=== PATIENT | female | born 1945 | race Caucasian/White ===

== ENCOUNTER 2016-09-27 06:43 | Outpatient (CLI) | payer MEDICARE | END 2016-09-27 06:44 | disposition home or self-care (01) | DX: E03.9 Hypothyroidism, unspecified (principal); Z79.899 Other long term (current) drug therapy ==

== ENCOUNTER 2016-10-18 12:58 | Outpatient (CLI) | payer MEDICARE | END 2016-10-18 12:59 | disposition home or self-care (01) | DX: R07.89 Other chest pain (principal); R68.84 Jaw pain; M54.2 Cervicalgia ==

== ENCOUNTER 2016-10-24 08:00 | Outpatient (CLI) | payer MEDICARE | END 2016-10-24 23:59 | disposition home or self-care (01) | DX: N30.01 Acute cystitis with hematuria (principal) ==

== ENCOUNTER 2016-10-28 11:18 | Outpatient (CLI) | payer MEDICARE | END 2016-10-28 11:19 | disposition home or self-care (01) | DX: R07.89 Other chest pain (principal); I10 Essential (primary) hypertension; I08.2 Rheumatic disorders of both aortic and tricuspid valves ==

== ENCOUNTER 2017-01-13 08:05 | Outpatient (CLI) | payer MEDICARE ==
[2017-01-13 15:14] LABS: BASOPHILS % (AUTO) 0.6 %; EOSINOPHILS # (AUTO) 0.1 10^3/uL (0.0-0.7); HCT - HEMATOCRIT 38.4 % (37.0-47.0); HGB - HEMOGLOBIN 12.8 g/dL (12.0-16.0); LYMPHOCYTES # (AUTO) 1.7 10^3/uL (1.5-3.5); LYMPHOCYTES % (AUTO) 36.5 %; MEAN CORPUSCULAR HEMOGLOBIN 27.8 pg (27.0-31.0); MEAN CORPUSCULAR HGB CONC 33.2 g/dL (32.0-36.0); MEAN CORPUSCULAR VOLUME 83.8 fL (81.0-99.0); MEAN PLATELET VOLUME 8.1 fL (7.9-10.8); MONOCYTES # (AUTO) 0.4 10^3/uL (0.0-1.0); MONOCYTES % (AUTO) 7.9 %; NEUTROPHILS # (AUTO) 2.5 10^3/uL (1.5-6.6); RED BLOOD COUNT 4.58 10^6/uL (4.20-5.40); RED CELL DISTRIBUTION WIDTH 13.8 % (12.0-15.0); UNCORRECTED WHITE BLOOD COUNT 4.7 x10^3/uL; WHITE BLOOD COUNT 4.7 x10^3/uL (4.8-10.8)
[2017-01-13 15:39] LABS: ALBUMIN/GLOBULIN RATIO 1.3 (1.0-2.2); BILIRUBIN,TOTAL 0.8 mg/dL (0.2-1.0); BUN - BLOOD UREA NITROGEN 10 mg/dL (6-20); CALCIUM 9.3 mg/dL (8.5-10.3); CARBON DIOXIDE - CO2 28 mmol/L (21-32); CHLORIDE 96 mmol/L (101-111); CHOL/HDL RATIO 2.6 (<4.4); CHOLESTEROL 219 mg/dL; CREATININE 0.8 mg/dL (0.4-1.0); GFR - MDRD 71 (>89); GLUCOSE 84 mg/dL (70-100); HDL CHOLESTEROL 85 mg/dL; LDL/HDL RATIO 1.2 (<4.4); POTASSIUM 3.7 mmol/L (3.5-5.0); SODIUM 133 mmol/L (135-145); TOTAL PROTEIN 7.5 g/dL (6.7-8.2); TRIGLYCERIDES 151 mg/dL; VLDL CHOLESTEROL 30 mg/dL
[2017-01-13 15:49] LABS: FERRITIN 38.1 ng/mL (11.0-306.8)
[2017-01-13 16:02] LABS: THYROID STIMULATING HORMONE 2.78 uIU/mL (0.34-5.60)
== END 2017-01-13 08:06 | disposition home or self-care (01) ==
LOC: LAB.R 08:05
PROVIDERS: ATTEND Physician Assistant Medical
DX: E03.9 Hypothyroidism, unspecified (principal); M81.0 Age-related osteoporosis without current pathological fracture; G25.81 Restless legs syndrome; I10 Essential (primary) hypertension; Z79.899 Other long term (current) drug therapy
CPT/HCPCS: 80053; 80061; 82306; 82728; 84443; 85025

== ENCOUNTER 2017-01-25 10:11 | Outpatient (CLI) | payer MEDICARE ==
--- NOTE | 2017-01-26 17:04 | Mammography Report ---
DIGITAL SCREENING MAMMOGRAM: 01/25/2017 CLINICAL INDICATION: A 71-year-old with family history of breast cancer, history of benign left shola st biopsy for screening. COMPARISON: 12/2015, 11/2014, 09/2013, 12/2011, 10/2010, 09/2009. TECHNIQUE: Routine CC and MLO projections were obtained of the breasts. FINDINGS: Parenchymal tissue within the breasts is predominantly fatty replaced. There are no domin ant masses, suspicious microcalcifications, or secondary signs of malignancy. In comparison to the p revious studies, there are no significant changes. IMPRESSION: NO MAMMOGRAPHIC EVIDENCE OF MALIGNANCY. NO SIGNIFICANT INTERVAL CHANGES. RECOMMENDATION: Screening mammography is recommended annually. BIRADS category 1 - negative. STANDARD QUALIFYING STATEMENTS 1. This examination was reviewed with the aid of Computed-Aided Detection (CAD). 2. A negative or benign imaging report should not delay biopsy if clinically suspicious findings are present. Consider surgical consultation if warranted. More than 5% of cancers are not identified b y imaging. 3. Dense breasts may obscure an underlying neoplasm. JOB #: [id number] EXT JOB #:[id number]
== END 2017-01-25 10:12 | disposition home or self-care (01) ==
LOC: DI 10:11
PROVIDERS: ATTEND Physician Assistant Medical
DX: Z12.31 Encounter for screening mammogram for malignant neoplasm of breast (principal); Z80.3 Family history of malignant neoplasm of breast
CPT/HCPCS: 77067

== ENCOUNTER 2017-03-21 08:00 | Outpatient (CLI) | payer MEDICARE ==
[2017-03-21 09:54] LABS: BASOPHILS % (AUTO) 0.4 %; EOSINOPHILS # (AUTO) 0.1 10^3/uL (0.0-0.7); EOSINOPHILS % (AUTO) 1.2 %; HCT - HEMATOCRIT 37.8 % (37.0-47.0); HGB - HEMOGLOBIN 12.8 g/dL (12.0-16.0); LYMPHOCYTES # (AUTO) 1.5 10^3/uL (1.5-3.5); LYMPHOCYTES % (AUTO) 29.1 %; MEAN CORPUSCULAR HEMOGLOBIN 28.9 pg (27.0-31.0); MEAN CORPUSCULAR HGB CONC 33.8 g/dL (32.0-36.0); MEAN CORPUSCULAR VOLUME 85.4 fL (81.0-99.0); MEAN PLATELET VOLUME 7.3 fL (7.9-10.8); MONOCYTES # (AUTO) 0.4 10^3/uL (0.0-1.0); MONOCYTES % (AUTO) 8.4 %; NEUTROPHILS # (AUTO) 3.2 10^3/uL (1.5-6.6); NEUTROPHILS % (AUTO) 60.9 %; RED BLOOD COUNT 4.43 10^6/uL (4.20-5.40); RED CELL DISTRIBUTION WIDTH 14.7 % (12.0-15.0); UNCORRECTED WHITE BLOOD COUNT 5.2 x10^3/uL; WHITE BLOOD COUNT 5.2 x10^3/uL (4.8-10.8)
[2017-03-21 10:09] LABS: ALBUMIN/GLOBULIN RATIO 1.7 (1.0-2.2); BILIRUBIN,TOTAL 0.8 mg/dL (0.2-1.0); CALCIUM 9.3 mg/dL (8.5-10.3); CREATININE 0.7 mg/dL (0.4-1.0); MAGNESIUM 2.2 mg/dL (1.7-2.8); POTASSIUM 3.7 mmol/L (3.5-5.0); TOTAL PROTEIN 6.9 g/dL (6.7-8.2)
== END 2017-03-21 08:01 | disposition home or self-care (01) ==
LOC: LAB.R 08:00
PROVIDERS: ATTEND Physician Assistant Medical
DX: E03.9 Hypothyroidism, unspecified (principal); R42 Dizziness and giddiness; G47.62 Sleep related leg cramps; G25.81 Restless legs syndrome; E87.1 Hypo-osmolality and hyponatremia; N39.0 Urinary tract infection, site not specified
CPT/HCPCS: 80053; 83735; 84443; 85025; 87077; 87086

== ENCOUNTER 2017-05-06 12:00 | Outpatient (CLI) | payer MEDICARE ==
[2017-05-06 13:05] LABS: CREATININE 0.7 mg/dL (0.4-1.0)
[2017-05-06] MEDS ORDERED: GADOBUTROL 7.5 MMOL/7.5 ML VIAL ONE (13:17)
[2017-05-06] MEDS ORDERED: GADOBUTROL 7.5 MMOL/7.5 ML VIAL IVP ONE (13:52)
--- NOTE | 2017-05-07 06:18 | MRI Report ---
EXAM: MRI BRAIN WITHOUT AND WITH CONTRAST EXAM DATE: 05/06/2017 02:00 PM. CLINICAL HISTORY: Dizziness, hypertension. COMPARISON: Brain CT from 12/27/2006. TECHNIQUE: Multiplanar, multisequence T1-weighted and fluid-sensitive MR sequences of the brain were performed. Sequences optimized for routine evaluation. Other: None. IV Contrast: 7.5 mL of Gadavist. FINDINGS: Brain Volume: There is mild generalized cerebral volume loss, in keeping with the patient's age. Parenchyma: No diffusion restriction is identified to suggest acute or recent infarct. The susceptibility sensitive sequence demonstrates a single chronic microhemorrhage in the anterior l eft frontal lobe, often related to chronic hypertension. Mild scattered foci of T2 hyperintensity are seen in the subcortical, deep, and periventricular white matter of the bilateral cerebral hemispheres, typically reflecting chronic microvascular ischemic ch anges in a patient of this age. Ventricles/Cisterns: No hydrocephalus. No abnormal extra-axial fluid collection or hemorrhage. Orbits: Symmetric and unremarkable. Sella Turcica: The pituitary gland, cavernous sinuses, suprasellar cistern and optic chiasm are unrem arkable. IAC: Symmetric and unremarkable. Vasculature: Normal signal flow void is seen in the major arterial structures at the skull base. The dural sinuses are patent and enhance normally. Sinuses: No acute sinus disease. Bones: No focal pathologic appearing marrow signal changes. IMPRESSION: 1.No acute infarct or intracranial mass lesion. 2. Mild senescent changes. [facility] Referring Provider Line: [phone] SITE ID: [id number]
== END 2017-05-06 12:01 | disposition home or self-care (01) ==
LOC: LAB 12:00
PROVIDERS: ATTEND Physician Assistant Medical
DX: R42 Dizziness and giddiness (principal); I10 Essential (primary) hypertension; Z79.899 Other long term (current) drug therapy
CPT/HCPCS: 70553; 82565; A9585; 36415

== ENCOUNTER 2017-09-13 08:00 | Outpatient (CLI) | payer MEDICARE ==
[2017-09-13 17:40] LABS: T4 (THYROXINE) 7.5 ug/dL (6.09-12.23)
[2017-09-13 17:43] LABS: THYROID STIMULATING HORMONE 0.7 uIU/mL (0.34-5.60)
[2017-09-13 17:50] LABS: TOTAL T3 1.16 ng/mL (0.87-1.78)
== END 2017-09-13 08:01 | disposition home or self-care (01) ==
LOC: LAB.R 08:00
PROVIDERS: ATTEND Physician Assistant Medical
DX: E03.9 Hypothyroidism, unspecified (principal); Z79.899 Other long term (current) drug therapy
CPT/HCPCS: 84436; 84443; 84480

== ENCOUNTER 2017-10-04 15:07 | Observation (INO) | payer MEDICARE ==
[2017-10-04 17:12] LABS: BASOPHILS % (AUTO) 0.3 %; EOSINOPHILS % (AUTO) 0.3 %; HGB - HEMOGLOBIN 12.6 g/dL (12.0-16.0); LYMPHOCYTES # (AUTO) 0.8 10^3/uL (1.5-3.5); LYMPHOCYTES % (AUTO) 21.3 %; MEAN CORPUSCULAR HEMOGLOBIN 27.8 pg (27.0-31.0); MEAN CORPUSCULAR HGB CONC 33.3 g/dL (32.0-36.0); MEAN CORPUSCULAR VOLUME 83.7 fL (81.0-99.0); MEAN PLATELET VOLUME 7.6 fL (7.9-10.8); MONOCYTES # (AUTO) 0.4 10^3/uL (0.0-1.0); MONOCYTES % (AUTO) 10.5 %; NEUTROPHILS # (AUTO) 2.5 10^3/uL (1.5-6.6); NEUTROPHILS % (AUTO) 67.6 %; PLT - PLATELET COUNT 206 10^3/uL (130-450); RED BLOOD COUNT 4.52 10^6/uL (4.20-5.40); RED CELL DISTRIBUTION WIDTH 14.1 % (12.0-15.0); WHITE BLOOD COUNT 3.7 x10^3/uL (4.8-10.8)
[2017-10-04 17:13] LABS: CALCIUM 8.7 mg/dL (8.5-10.3); CREATININE 0.6 mg/dL (0.4-1.0)
[2017-10-04] MEDS ORDERED: SODIUM CHLORIDE 0.9% 1,000 ML IV ONE (18:06)
--- NOTE | 2017-10-04 18:09 | ED Physician Documentation ---
History of Present Illness - Stated complaint Stated Complaint: SINUS PX/COUGH - Chief complaint Chief Complaint: General - Additonal information Additional information: hx from pt 72 female no travel sick with fever cough and several days later she got sick with same fever chills sinus pressure sore throat wet productive cough no NVD no leg swelling seen at PMD and was orthostatic (BP dropped from 130 to 90) so sent to ER for eval and IVF Review of Systems Constitutional: reports: Fever, Myalgias, Fatigue, Sweats Nose: reports: Congestion, Sinus pressure / pain Throat: reports: Sore throat Respiratory: reports: Cough GI: denies: Vomiting, Diarrhea Musculoskeletal: denies: Extremity swelling Endocrine: denies: Easy bruising / bleeding Immunocompromised: denies: Immunocompromised PD PAST MEDICAL HISTORY - Past Medical History Cardiovascular: Hypertension, Murmur Neuro: None Endocrine/Autoimmune: HyPOthyroidism GI: GERD HEENT: None Musculoskeletal: Osteoarthritis, Osteoporosis - Past Surgical History Past Surgical History: Yes Ortho: Hip replacement, 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 Derm: Skin cancer surgery - Present Medications Home Medications: Ambulatory Orders Medication Instructions Recorded Confirmed Atenolol 25 mg PO 02/05/14 02/05/14 Calcitonin [Fortical] 1 sprays KARI DAILY 02/05/14 02/05/14 Hydrocodone/Acetaminophen 1 each PO Q4HR PRN #15 tablet 02/05/14 [Hydrocodone-APAP 5-325] Levothyroxine [Synthroid] 25 mcg PO QDAC 02/05/14 02/05/14 Omeprazole [PriLOSEC] 20 mg PO DAILY 02/05/14 02/05/14 - Allergies Allergies/Adverse Reactions: Allergies Allergy/AdvReac Type Severity Reaction Status Date / Time Sulfa (Sulfonamide Allergy Itching Verified 10/04/17 15:30 Antibiotics) - Social History Does the pt smoke?: No Smoking Status: Never smoker Does the pt drink ETOH?: No Does the pt have substance abuse?: No - Immunizations Immunizations are current?: Yes - POLST Patient has POLST: No PD ED PE NORMAL - Vitals Vital signs reviewed: Yes - General General: Alert and oriented X 3 - HEENT HEENT: Atraumatic, Ears normal, Pharynx benign, Other ( + diffuse sinus TTP sswelling). No: Moist mucous membranes (little sticky) - Neck Neck: Supple, no meningeal sign - Cardiac Cardiac: RRR - Respiratory Respiratory: Other (ronchi vladimir) - Abdomen Abdomen: Soft, Non tender - Derm Derm: Normal color - Extremities Extremities: No edema, No calf tenderness / cord - Neuro Neuro: Alert and oriented X 3 Results - Vitals Vitals: Vital Signs - 24 hr 10/04/17 10/04/17 15:27 19:08 Temperature 36.5 C 37.2 C Heart Rate 56 L 63 Respiratory 16 20 Rate Blood Pressure 103/63 126/68 O2 Saturation 98 97 Oxygen O2 Source Room air - Labs Labs: Laboratory Tests 10/04/17 10/04/17 10/04/17 16:49 16:49 16:49 WBC 3.7 L RBC 4.52 Hgb 12.6 Hct 37.8 MCV 83.7 MCH 27.8 MCHC 33.3 RDW 14.1 Plt Count 206 MPV 7.6 L Neut # 2.5 Lymph # 0.8 L [place] # 0.4 Eos # 0.0 Baso # 0.0 Absolute Nucleated RBC 0.00 Nucleated RBC % 0.1 Sodium 123 L Potassium 3.7 Chloride 88 L Carbon Dioxide 26 Anion Gap 9.0 BUN 8 Creatinine 0.6 Estimated GFR (MDRD) 99 Glucose 106 H Lactic Acid 0.7 Calcium 8.7 - Rads (name of study) CXR Radiology: See rad report (faint right perihilar and lingular interstitial infiltrates) PD MEDICAL DECISION MAKING - ED course ED course: strep neg at PMD pt declined flu swab in ED given IVF and symptomatic meds labs fine except hyponatremia CXR shows vladimir infiltrates gave rocephin zmax on reassessment pt still looks ill will recheck orthostatics orthostatics better but Na very low at 123 and pt still very weak feel best to admit for continued IV hydration and antibiotics and correction of hyponatremia simone hospitalist at 1915 Departure - Departure Disposition: ED Place in Observation Clinical Impression: Hyponatremia Pneumonia Qualifiers: Pneumonia type: due to unspecified organism Laterality: bilateral Lung location : unspecified part of lung Qualified Code(s): J18.9 - Pneumonia, unspecified organism Condition: Fair
[2017-10-04] MEDS ORDERED: OXYMETAZOLINE NASAL SPRAY NAS STA (18:11)
[2017-10-04] MEDS ORDERED: PSEUDOEPHEDRINE 30 MG TABLET PO STA (18:11)
[2017-10-04] MEDS ORDERED: guaiFENesin/DEXTROMETHORPHAN 10 ML UDC PO STA (18:14)
[2017-10-04] MEDS ORDERED: BENZONATATE 100 MG CAPSULE PO STA (18:14)
--- NOTE | 2017-10-04 18:24 | XRAY Preliminary Report ---
Exam: XR CHEST 2 VIEW X-RAY IMPRESSION: Faint right perihilar and lingular interstitial infiltrates [facility] SITE ID: [id number]
--- NOTE | 2017-10-04 18:32 | XRAY Report ---
EXAM: CHEST RADIOGRAPHY EXAM DATE: 10/04/2017 05:54 PM. CLINICAL HISTORY: Fever, cough, hypotension for 5 days. COMPARISON: 04/08/2011. TECHNIQUE: 2 views. FINDINGS: Lungs/Pleura: New faint interstitial infiltrates within the lingula and right perihilar region. No ai rspace consolidation, effusion, vascular congestion nor pneumothorax. Normal lung volumes. Mediastinum: Heart and mediastinal contours are unremarkable. Other: None. IMPRESSION: Faint right perihilar and lingular interstitial infiltrates. [facility] Referring Provider Line: [phone] SITE ID: [id number]
[2017-10-04] MEDS ORDERED: cefTRIAXone 1 GM in SODIUM CHLORIDE 0.9% MINIBAG 100 ML IV STA (18:45)
[2017-10-04] MEDS ORDERED: AZITHROMYCIN INJ 500 MG in SODIUM CHLORIDE 0.9% 250 ML IV STA (18:45)
[2017-10-04] MEDS ORDERED: oxyCODONE 5 MG TABLET PO PRN (19:19)
[2017-10-04] MEDS ORDERED: ONDANSETRON ODT 4 MG TABLET TL PRN (19:19)
[2017-10-04] MEDS ORDERED: ACETAMINOPHEN 325 MG TABLET PO PRN (19:19)
[2017-10-04] MEDS ORDERED: SODIUM CHLORIDE FLUSH 0.9% 10 ML SYRINGE IVP PRN (19:19)
[2017-10-04] MEDS ORDERED: ONDANSETRON 4 MG/2 ML VIAL IVP PRN (19:19)
[2017-10-04] MEDS ORDERED: PANTOPRAZOLE 40 MG TABLET PO SCH (19:24)
[2017-10-04] MEDS: SODIUM CHLORIDE 0.9% 1,000 ML IV SCH (21:05)
--- NOTE | 2017-10-04 22:28 | HISTORY & PHYSICAL EXAMINATION ---
Chief Complaint - Chief Complaint Chief Complaint: unremitting cough spasms and fatigue, anorexia History of Present Illness - Admitted From Admitted From:: ED/home - History Obtained From Records Reviewed: [facility] History obtained from: Patient and Dr. Yang Exam Limitations: none - History of Present Illness HPI Comment/Other: Pleasant white female who has no major medical illnesses other than high blood pressure alternating with low blood pressure. In the last couple of years she's developed problems with her blood pressure going up and then going down. She will get dizzy when she standing up. Her primary care provider has been working that up and other than aortic regurgitation nothing has been found. A week ago she and her both came down with a severe viral infection. It had sore throat, sinus congestion, chest congestion, coughing, and just overall misery. She's been staying up at night taking care of her because he seemed to be sicker than she was. He was finally on the mend and she took herself to see her primary care provider today because the coughing was nonstop and she couldn't sleep at night because she couldn't lay down flat. She's had a poor appetite. No chest pain. But if she takes a deep breath it just starts of coughing spasms that won't stop, make her short of breath, and increased urinary incontinence. She went to the office and was found to be orthostatic with a blood pressure that went from 1:30 systolic to 90 systolic. She doesn't understand what that meant because she does this all the time, and thus the reason she is being evaluated for a blood pressure that goes up and down. Nevertheless, in the context of the cough, she was sent to the emergency room. In the emergency room she is afebrile, oxygenating well on room air, but has bilateral pneumonia. 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 Dad age 78 accommodations of emphysema. One brother of heart disease in his 60s. One sister is alive and has had breast cancer. Her daughter is healthy Living arrangement: At home Living Situation: With spouse/s.o. Social History Notes: she smoked from the ages of [age]. And smoked one half packs per day. She never abused alcohol, and has never done recreational substance abuse. She was born and raised in [place]: she was born in [facility] and spent most of her years in [place]. From there she moved to [place] , then [place], [place]. 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 She is still completely independent with regards to activities of daily living, paying the bills, cleaning house, driving. Daughter lives in [facility] near [place]. - Substance History Use: Uses substance without health or social issues: NONE Abuse: Recurrent use of substance despite neg consequences: NONE Dependence: Experiences withdrawal or developed tolerances: NONE - POLST Patient has POLST: No POLST Status: Full Code Meds/Allgy - Home Medications Home Medications: Ambulatory Orders Medication Instructions Recorded Confirmed Atenolol 25 mg PO 02/05/14 02/05/14 Calcitonin [Fortical] 1 sprays KARI DAILY 02/05/14 02/05/14 Hydrocodone/Acetaminophen 1 each PO Q4HR PRN #15 tablet 02/05/14 [Hydrocodone-APAP 5-325] Levothyroxine [Synthroid] 25 mcg PO QDAC 02/05/14 02/05/14 Omeprazole [PriLOSEC] 20 mg PO DAILY 02/05/14 02/05/14 - Allergies Allergies/Adverse Reactions: Allergies Allergy/AdvReac Type Severity Reaction Status Date / Time Sulfa (Sulfonamide Allergy Itching Verified 10/04/17 15:30 Antibiotics) Review of Systems - Constitutional Constitutional: reports: Fatigue, Fever, Chills, Malaise, Poor appetite - Eyes Eyes: reports: Corrective lenses. denies: Pain, Irritation, Amaurosis, Blurred vision - Ears, Nose & Throat Ears, Nose & Throat: reports: Vertigo, Nasal discharge, Nasal congestion. denies: Ear pain - Cardiovascular Cariovascular: reports: Palpitations (starting to happen. ECHO has LAE so she may have intermittent afib), Lightheadedness (BP goes up and down for over a year now), Exertional dyspnea (starting to happen as she walks up her stairs in her 3 story house, this is a separate problem from her current pneumonia), Decr. exercise tolerance - Respiratory Respiratory: reports: Cough, Sputum production, Orthopnea - Gastrointestinal Gastrointestinal: denies: Abdominal pain, Abdominal distention, Constipation, Diarrhea, Rectal bleeding - Genitourinary Genitourinary: reports: Incontinence. denies: Dysuria, Frequency, Urgency - Musculoskeletal Musculoskeletal: reports: Muscle aches, Joint pain (knees need replacment and she takes cortisone shots for pain control). denies: Muscle pain, Back pain, Stiffness - Integumentary Integumentary: denies: Rash, Pruritis, Lesions, Dryness - Neurological Neurological: reports: General weakness, Dizziness. denies: Focal weakness, Headache, Numbness, Memory problems, Pre-existing deficit, Abnormal gait - Psychiatric Psychiatric: denies: Depression, Anxiety, Suicidal, Delusions - Endocrine Endocrine: denies: Polyuria, Polydypsia, Polyphagia - Hematologic/Lymphatic Hematologic/Lymphatic: denies: Anemia, Bruising, Petechiae Exam - Vital Signs Reviewed Vital Signs: Yes Vital Signs: Vital Signs x48h Pulse Resp BP Pulse Ox 10/04/17 20:25 68 16 120/70 98 - Physical Exam General Appearance: positive: No acute distress, Alert, Other (middle aged white female with nasal tone of voice. Frequent dry cough.) Eyes Bilateral: positive: PERRL, EOMI ENT: positive: Pharyngeal erythema Neck: positive: No JVD. negative: Stiff neck, Carotid bruit, Swelling/bruising Respiratory: positive: Chest non-tender, Rhonchi (mid lungs with left > right), Other (no tachypnea but cough leaves her breathless) Cardiovascular: positive: Regular rate & rhythm, Systolic murmur, Diastolic murmur. negative: Gallop/S4, Friction rub Peripheral Pulses: positive: 1+ Abdomen: positive: Non-tender, No organomegaly, Nml bowel sounds, No distention Skin: positive: Warm, Dry Extremities: positive: Nml appearance, No pedal edema Neurologic/Psychiatric: positive: Oriented x3, CN's nml (2-12), Motor nml Conclusion/Plan - Problem List (1) Community acquired bacterial pneumonia Conclusion/Plan: she presents as viral syndrome for over a week, and now with cough, congestion, anorexia, fatigue. She was orthostatic but is usually orthostatic according to her history. CXR positive. WBC is low. Not hypoxic and negative lactic acid. Dose of azithromycin and rocephin given. Blood cultures ordered and done Robitussin AC for cough No O2 needed IVF with 0.9 NS Patient takes probiotics at home already Plan: place in observation to make sure she responds. DC in am if still stable. compete a total of 7 days of antibiotics and change to oral after tomorrow with amoxicillin 875 mg po bid #10, azithromycin 250 mg po #2. She already has Myron Ac at home from her so doesn't need a new Rx for it at discharge. (2) Hyponatremia Conclusion/Plan: I suspect dehydration. Plan: IVF with 0.9 NS until tomorrow. repeat BMP in am. (3) Orthostatic dizziness Conclusion/Plan: hold off on her BP meds until am. - Lab Results Lab results reviewed: Yes Fish Bones: 10/04/17 16:49 10/04/17 16:49 - Diagnostic Imaging Results Diagnostic Imaging Results: positive: Final report reviewed Core Measures - Anticipated LOS I expect patient to be DC'd or transferred within 96 hours.: Yes - DVT/VTE - Prophylaxis VTE/DVT Device ordered at admit?: Yes
[2017-10-05] MEDS: guaiFENesin/CODEINE 5 ML UDC PO PRN ×2 (00:18→06:07)
[2017-10-05] MEDS ORDERED: SODIUM CHLORIDE FLUSH 0.9% 10 ML SYRINGE IVP SCH (01:00)
[2017-10-05 05:50] LABS: BASOPHILS % (AUTO) 0.5 %; EOSINOPHILS # (AUTO) 0.1 10^3/uL (0.0-0.7); HGB - HEMOGLOBIN 11.8 g/dL (12.0-16.0); LYMPHOCYTES % (AUTO) 31.3 %; MEAN CORPUSCULAR HEMOGLOBIN 27.8 pg (27.0-31.0); MEAN CORPUSCULAR HGB CONC 33.5 g/dL (32.0-36.0); MEAN CORPUSCULAR VOLUME 83.2 fL (81.0-99.0); MEAN PLATELET VOLUME 7.1 fL (7.9-10.8); MONOCYTES # (AUTO) 0.5 10^3/uL (0.0-1.0); MONOCYTES % (AUTO) 14.4 %; NEUTROPHILS # (AUTO) 1.7 10^3/uL (1.5-6.6); NEUTROPHILS % (AUTO) 51.8 %; PLT - PLATELET COUNT 185 10^3/uL (130-450); RED BLOOD COUNT 4.22 10^6/uL (4.20-5.40); RED CELL DISTRIBUTION WIDTH 13.6 % (12.0-15.0); WHITE BLOOD COUNT 3.3 x10^3/uL (4.8-10.8)
[2017-10-05 06:02] LABS: CALCIUM 8.2 mg/dL (8.5-10.3); CREATININE 0.4 mg/dL (0.4-1.0)
[2017-10-05] MEDS ORDERED: LEVOTHYROXINE 25 MCG TABLET PO SCH (07:00)
[2017-10-05 07:12] VITALS: BP 117/67
[2017-10-05] MEDS: SODIUM CHLORIDE 0.9% 1,000 ML IV SCH (07:26)
--- NOTE | 2017-10-05 07:44 | Discharge Plan ---
Discharge Plan Disposition: [facility] DC/Xfer Condition: Fair Prescriptions: Amoxicillin/Potassium Clav [Amox Tr-K Clv 875-125 mg Tab] 1 each PO BID #10 tablet Azithromycin 250 mg PO DAILY #5 tablet Diet: Regular Activity Restrictions: Activity as Tolerated Shower Restrictions: No Driving Restrictions: No Weight Bearing: Full Weight Additional Instructions or Follow Up instructions: You presented to the ER with pneumonia. Given that you were dehydrated and your sodium was low we felt it was best for you to receive antibiotics and fluids overnight before being discharged home. You seem to be doing slightly better now and your sodium level has come up. We recommend that you continue antibiotics for an additional 5 days to complete the course of treatment. You can take a cough suppressant as needed for your cough. You should begin to feel better in 3-4 days. Please make sure to drink plenty of fluids and stay active. No Smoking: If you smoke, Please STOP! Call for help. Follow-up with: Telma Allen PA-C [Primary Care Provider] -
[2017-10-05] MEDS ORDERED: AZITHROMYCIN INJ 500 MG in SODIUM CHLORIDE 0.9% 250 ML IV SCH (09:00)
[2017-10-05] MEDS ORDERED: ATENOLOL 25 MG TABLET PO SCH (09:00)
[2017-10-05] MEDS ORDERED: POLYETHYLENE GLYCOL 3350 17 GM PACKET PO SCH (09:00)
[2017-10-05] MEDS ORDERED: cefTRIAXone 2 GM in SODIUM CHLORIDE 0.9% MINIBAG 100 ML IV SCH (09:00)
--- NOTE | 2017-10-05 11:16 | DISCHARGE SUMMARY ---
Discharge Summary Admit Date: 10/04/17 Discharge Date: 10/05/17 Discharging Provider: Hima Gonzalez MD Primary Care Provider: To Diop MD Code Status: Attempt Resuscitation Condition at Discharge: Fair Discharge Disposition: 01 Home, Self Care - DIAGNOSES Admission Diagnoses: 1. Community-acquired bacterial pneumonia 2. Hyponatremia 3. Orthostatic dizziness Discharge Diagnoses with Status of Each Condition: 1. Community-acquired bacterial pneumonia: Improving 2. Hyponatremia: Improved 3. Orthostatic dizziness: Improved - HPI History of Present Illness: Pleasant white female who has no major medical illnesses other than high blood pressure alternating with low blood pressure. In the last couple of years she's developed problems with her blood pressure going up and then going down. She will get dizzy when she standing up. Her primary care provider has been working that up and other than aortic regurgitation nothing has been found. A week ago she and her both came down with a severe viral infection. It had sore throat, sinus congestion, chest congestion, coughing, and just overall misery. She's been staying up at night taking care of her because he seemed to be sicker than she was. He was finally on the mend and she took herself to see her primary care provider today because the coughing was nonstop and she couldn't sleep at night because she couldn't lay down flat. She's had a poor appetite. No chest pain. But if she takes a deep breath it just starts of coughing spasms that won't stop, make her short of breath, and increased urinary incontinence. She went to the office and was found to be orthostatic with a blood pressure that went from 1:30 systolic to 90 systolic. She doesn't understand what that meant because she does this all the time, and thus the reason she is being evaluated for a blood pressure that goes up and down. Nevertheless, in the context of the cough, she was sent to the emergency room. In the emergency room she is afebrile, oxygenating well on room air, but has bilateral pneumonia. - HOSPITAL COURSE Hospital Course: The patient was placed in observation and treated with IV fluids and IV antibiotics. She was placed on IV ceftriaxone and azithromycin. She received 2 doses of antibiotics while she was hospitalized. By the next morning the patient was feeling slightly better and her hyponatremia had improved. The patient also had no further orthostatic dizziness. She was not hypoxic and appeared well enough to be able to go home on oral antibiotics. The patient was discharged home with oral Augmentin and oral azithromycin for 5 additional days to complete treatment for community-acquired pneumonia. She will follow- up with her primary care physician if she is not feeling better after treatment for pneumonia. The patient was also instructed to take Robitussin for her cough as needed she stated that she already had Robitussin at home. - ALLERGIES Allergies/Adverse Reactions: Allergies Allergy/AdvReac Type Severity Reaction Status Date / Time Sulfa (Sulfonamide Allergy Itching Verified 10/04/17 15:30 Antibiotics) - MEDICATIONS Home Medications: Ambulatory Orders Medication Instructions Recorded Confirmed Atenolol 25 mg PO 02/05/14 02/05/14 Calcitonin [Fortical] 1 sprays KARI DAILY 02/05/14 02/05/14 Hydrocodone/Acetaminophen 1 each PO Q4HR PRN #15 tablet 02/05/14 [Hydrocodone-APAP 5-325] Levothyroxine [Synthroid] 25 mcg PO QDAC 02/05/14 02/05/14 Omeprazole [PriLOSEC] 20 mg PO DAILY 02/05/14 02/05/14 Amoxicillin/Potassium Clav [Amox 1 each PO BID #10 tablet 10/05/17 Tr-K Clv 875-125 mg Tab] Azithromycin 250 mg PO DAILY #5 tablet 10/05/17 - PHYSICAL EXAM AT DISCHARGE General Appearance: positive: No acute distress, Alert Eyes Bilateral: positive: Normal inspection, PERRL, EOMI, No lid inflammation, Conjunctivae nml, No scleral icterus ENT: positive: ENT inspection nml, Pharynx nml, No signs of dehydration. negative: Purulent nasal drainage, Pharyngeal erythema, Oral lesions Neck: positive: Nml inspection, Thyroid nml, No JVD, Trachea midline. negative : Thyromegaly, Lymphadenopathy (R), Lymphadenopathy (L), Stiff neck Respiratory: positive: Chest non-tender, No respiratory distress, Rhonchi ( Right lung). negative: Wheezes, Rales Cardiovascular: positive: Regular rate & rhythm, No murmur, No gallop Peripheral Pulses: positive: 2+ Abdomen: positive: Non-tender, No organomegaly, Nml bowel sounds, No distention. negative: Guarding, Rebound Back: positive: Nml inspection. negative: CVA tenderness (R), CVA tenderness (L ) Skin: positive: Color nml, No rash, Warm Extremities: positive: Non-tender, Full ROM, Nml appearance, No pedal edema Neurologic/Psychiatric: positive: Oriented x3, CN's nml (2-12), Motor nml, Sensation nml, Mood/affect nml - LABS Result Diagrams: 10/05/17 05:30 10/05/17 05:30 Other Lab Results: Laboratory Results WBC 3.3 x10^3/uL (4.8-10.8) L 10/05/17 05:30 RBC 4.22 10^6/uL (4.20-5.40) 10/05/17 05:30 Hgb 11.8 g/dL (12.0-16.0) L 10/05/17 05:30 Hct 35.1 % (37.0-47.0) L 10/05/17 05:30 MCV 83.2 fL (81.0-99.0) 10/05/17 05:30 MCH 27.8 pg (27.0-31.0) 10/05/17 05:30 MCHC 33.5 g/dL (32.0-36.0) 10/05/17 05:30 RDW 13.6 % (12.0-15.0) 10/05/17 05:30 Plt Count 185 10^3/uL (130-450) 10/05/17 05:30 MPV 7.1 fL (7.9-10.8) L 10/05/17 05:30 Neut # 1.7 10^3/uL (1.5-6.6) 10/05/17 05:30 Lymph # 1.0 10^3/uL (1.5-3.5) L 10/05/17 05:30 [place] # 0.5 10^3/uL (0.0-1.0) 10/05/17 05:30 Eos # 0.1 10^3/uL (0.0-0.7) 10/05/17 05:30 Baso # 0.0 10^3/uL (0.0-0.1) 10/05/17 05:30 Absolute Nucleated RBC 0.00 x10^3/uL 10/05/17 05:30 Nucleated RBC % 0.1 /100WBC 10/05/17 05:30 Sodium 133 mmol/L (135-145) L 10/05/17 05:30 Potassium 3.7 mmol/L (3.5-5.0) 10/05/17 05:30 Chloride 102 mmol/L (101-111) 10/05/17 05:30 Carbon Dioxide 24 mmol/L (21-32) 10/05/17 05:30 Anion Gap 7.0 (6-13) 10/05/17 05:30 BUN 7 mg/dL (6-20) 10/05/17 05:30 Creatinine 0.4 mg/dL (0.4-1.0) 10/05/17 05:30 Estimated GFR (MDRD) 157 (>89) 10/05/17 05:30 Glucose 104 mg/dL (70-100) H 10/05/17 05:30 Lactic Acid 0.7 mmol/L (0.5-2.2) 10/04/17 16:49 Calcium 8.2 mg/dL (8.5-10.3) L 10/05/17 05:30 - DIAGNOSTIC IMAGING Diagnostic Imaging Results: Final report reviewed Diagnostic Imaging Results Comments: Chest x-ray Impression: 1. Faint right perihilar and lingular interstitial infiltrates. - FOLLOW UP Follow Up: Patient will follow up with her primary care physician as needed. She will complete a 5 day course of antibiotics for pneumonia. - TIME SPENT Time Spent in Discharge (Minutes): 35
== END 2017-10-05 11:09 | disposition home or self-care (01) ==
LOC: ED 15:07 → OBS 19:19
PROVIDERS: ADMIT Specialist; ATTEND Internal Medicine
DX: J18.9 Pneumonia, unspecified organism (principal); E87.1 Hypo-osmolality and hyponatremia; E86.0 Dehydration; I95.1 Orthostatic hypotension; I11.9 Hypertensive heart disease without heart failure; I35.1 Nonrheumatic aortic (valve) insufficiency; I49.9 Cardiac arrhythmia, unspecified; E89.0 Postprocedural hypothyroidism; K21.9 Gastro-esophageal reflux disease without esophagitis; K22.70 Barrett's esophagus without dysplasia; M81.0 Age-related osteoporosis without current pathological fracture; Z85.828 Personal history of other malignant neoplasm of skin; Z87.891 Personal history of nicotine dependence
CPT/HCPCS: 36415; 71046; 80048; 83605; 85025; 87040; 96361; 96365; 96366; 96367; 99284; A9270; G0378; 99283

== ENCOUNTER 2017-10-12 08:00 | Outpatient (CLI) | payer MEDICARE ==
[2017-10-12 12:41] LABS: CREATININE 0.6 mg/dL (0.4-1.0)
== END 2017-10-12 08:01 | disposition home or self-care (01) ==
LOC: LAB.R 08:00
PROVIDERS: ATTEND Physician Assistant Medical
DX: E87.1 Hypo-osmolality and hyponatremia (principal)
CPT/HCPCS: 80048

== ENCOUNTER 2017-10-26 10:31 | Outpatient (CLI) | payer MEDICARE ==
--- NOTE | 2017-10-26 12:17 | XRAY Report ---
TWO VIEW CHEST: 10/26/2017 COMPARISON: Two view chest 10/04/2017. INDICATION: Community acquired pneumonia. TECHNIQUE: Two views. FINDINGS: Clear lungs. No pneumothorax or pleural effusion. Mediastinum unremarkable. IMPRESSION: NO EVIDENCE OF ACUTE THORACIC PROCESS. TD: 10/26/2017 12:16 MTDD
== END 2017-10-26 10:32 | disposition home or self-care (01) ==
LOC: DI 10:31
PROVIDERS: ATTEND Physician Assistant Medical
DX: J18.9 Pneumonia, unspecified organism (principal)
CPT/HCPCS: 71046

== ENCOUNTER 2017-12-21 15:57 | Outpatient (CLI) | payer MEDICARE | END 2017-12-21 15:58 | disposition home or self-care (01) | LOC: LAB.R 15:57 | PROVIDERS: ATTEND Physician Assistant Medical | DX: N30.00 Acute cystitis without hematuria (principal) | CPT/HCPCS: 87077; 87086; 87181 ==

== ENCOUNTER 2018-02-21 11:10 | Outpatient (CLI) | payer MEDICARE | END 2018-02-21 11:11 | disposition home or self-care (01) | LOC: LAB.R 11:10 | PROVIDERS: ATTEND Nurse Practitioner Primary Care | DX: N30.00 Acute cystitis without hematuria (principal) | CPT/HCPCS: 87077; 87086; 87181 ==

== ENCOUNTER 2018-03-08 11:49 | Emergency (ER) | payer MEDICARE ==
[2018-03-08 12:17] LABS: BASOPHILS % (AUTO) 0.1 %; HGB - HEMOGLOBIN 11.8 g/dL (12.0-16.0); LYMPHOCYTES # (AUTO) 0.5 10^3/uL (1.5-3.5); LYMPHOCYTES % (AUTO) 4.7 %; MEAN CORPUSCULAR HEMOGLOBIN 28.4 pg (27.0-31.0); MEAN CORPUSCULAR HGB CONC 34.2 g/dL (32.0-36.0); MEAN PLATELET VOLUME 6.8 fL (7.9-10.8); MONOCYTES # (AUTO) 0.6 10^3/uL (0.0-1.0); MONOCYTES % (AUTO) 5.6 %; NEUTROPHILS # (AUTO) 9.6 10^3/uL (1.5-6.6); NEUTROPHILS % (AUTO) 89.6 %; PLT - PLATELET COUNT 228 10^3/uL (130-450); RED BLOOD COUNT 4.15 10^6/uL (4.20-5.40); RED CELL DISTRIBUTION WIDTH 13.6 % (12.0-15.0); WHITE BLOOD COUNT 10.8 x10^3/uL (4.8-10.8)
[2018-03-08 12:28] LABS: ALBUMIN/GLOBULIN RATIO 1.3 (1.0-2.2); BILIRUBIN,TOTAL 0.9 mg/dL (0.2-1.0); CALCIUM 8.6 mg/dL (8.5-10.3); CREATININE 0.6 mg/dL (0.4-1.0); TOTAL PROTEIN 7.1 g/dL (6.7-8.2)
--- NOTE | 2018-03-08 13:14 | ED Physician Documentation ---
PD HPI NVD - Stated complaint Stated Complaint: VOMITING/DIARRHEA - Chief complaint Chief Complaint: Abd Pain - History obtained from History obtained from: Patient, Family - History of Present Illness Timing - onset: Yesterday Timing - duration: Days (1) Timing - details: Abrupt onset, Still present Associated symptoms: Abdominal pain Contributing factors: Bad food Improved by: Vomiting Similar symptoms before: Diagnosis (food poisoning) Recently seen: Not recently seen - Additonal information Additional information: 72-year-old otherwise healthy female with a history of hypertension has developed acute diarrhea yesterday morning. She thought this might be related to going out to lunch with some friends the day previously. She denies any exposure to uncooked or partially cooked eggs. She does state that she developed nausea and vomiting last night on top of the diarrhea she had all day yesterday. She is feeling lightheaded and dizzy. Review of Systems Constitutional: reports: Fatigue. denies: Fever, Myalgias Eyes: denies: Decreased vision Ears: denies: Ear pain Nose: denies: Congestion Throat: denies: Sore throat Cardiac: denies: Chest pain / pressure, Palpitations Respiratory: denies: Dyspnea, Cough GI: reports: Abdominal Pain (cramping with diarrhea), Nausea, Vomiting, Diarrhea : denies: Dysuria, Frequency Skin: denies: Rash Musculoskeletal: denies: Neck pain, Back pain, Extremity pain Neurologic: denies: Generalized weakness, Focal weakness, Numbness PD PAST MEDICAL HISTORY - Past Medical History Cardiovascular: Hypertension, Murmur, Arrhythmia Respiratory: Other Endocrine/Autoimmune: HyPOthyroidism GI: GERD 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 03/08/18 - Allergies Allergies/Adverse Reactions: Allergies Allergy/AdvReac Type Severity Reaction Status Date / Time Sulfa (Sulfonamide Allergy Itching Verified 03/08/18 11:53 Antibiotics) - Social History Does the pt smoke?: No Smoking Status: Never smoker Does the pt drink ETOH?: No Does the pt have substance abuse?: No - Immunizations Immunizations are current?: Yes - POLST Patient has POLST: No POLST Status: Full Code PD ED PE NORMAL - Vitals Vital signs reviewed: Yes (normal ) - General General: Alert and oriented X 3, No acute distress, Well developed/nourished - HEENT HEENT: Atraumatic, PERRL, EOMI, Other (dry mucous membranes ) - Neck Neck: Supple, no meningeal sign, No bony TTP - Cardiac Cardiac: RRR, No murmur - Respiratory Respiratory: No respiratory distress, Clear bilaterally - Abdomen Abdomen: Soft, Non tender - Back Back: No CVA TTP, No spinal TTP - Derm Derm: Normal color, Warm and dry, No rash - Extremities Extremities: No deformity, No edema - Neuro Neuro: Alert and oriented X 3, coding specialist home health 2-12 intact, No motor deficit, No sensory deficit, Normal speech Eye Opening: Spontaneous Motor: Obeys Commands Verbal: Oriented GCS Score: 15 - Psych Psych: Normal mood, Normal affect Results - Vitals Vitals: Vital Signs - 24 hr 03/08/18 11:51 Temperature 37.4 C Heart Rate 78 Respiratory 18 Rate Blood Pressure 110/63 O2 Saturation 96 Oxygen O2 Source Room air - Labs Labs: Laboratory Tests 03/08/18 03/08/18 03/08/18 12:06 12:06 15:48 WBC 10.8 RBC 4.15 L Hgb 11.8 L Hct 34.5 L MCV 83.0 MCH 28.4 MCHC 34.2 RDW 13.6 Plt Count 228 MPV 6.8 L Neut # (Auto) 9.6 H Lymph # (Auto) 0.5 L Haskell # (Auto) 0.6 Eos # (Auto) 0.0 Baso # (Auto) 0.0 Absolute Nucleated RBC 0.00 Nucleated RBC % 0.0 Sodium 131 L Potassium 3.5 Chloride 98 L Carbon Dioxide 24 Anion Gap 9.0 BUN 10 Creatinine 0.6 Estimated GFR (MDRD) 99 Glucose 137 H Calcium 8.6 Total Bilirubin 0.9 AST 24 ALT 21 Alkaline Phosphatase 68 Total Protein 7.1 Albumin 4.0 Globulin 3.1 Albumin/Globulin Ratio 1.3 Lipase 32 Urine Color YELLOW Urine Clarity CLEAR Urine pH 6.0 Ur Specific [place] 1.010 Urine Protein NEGATIVE Urine Glucose (UA) NEGATIVE Urine Ketones NEGATIVE Urine Occult Blood TRACE-INTA Urine Nitrite NEGATIVE Urine Bilirubin NEGATIVE Urine Urobilinogen 0.2 (NORMAL) Ur Leukocyte Esterase NEGATIVE Ur Microscopic Review NOT INDICATED Urine Culture Comments NOT INDICATED Procedures - IVC sono (time) 1350 Bedside IVC sono: IVC measures (cm) (1.29), IVC collapsed c insp (cm) (complete), Dehydration (est 1 liter deficit) PD MEDICAL DECISION MAKING - ED course Complexity details: reviewed results, re-evaluated patient, considered differential, d/w patient, d/w family ED course: 72-year-old female with a 2 day history of vomiting and diarrhea has mild dehydration on interrogation of the inferior vena cava. She does have normal electrolytes and she is administered a liter of saline intravenously with some Zofran. - Sepsis Event Vital Signs: Vital Signs - 24 hr 03/08/18 11:51 Temperature 37.4 C Heart Rate 78 Respiratory 18 Rate Blood Pressure 110/63 O2 Saturation 96 Oxygen O2 Source Room air Departure - Departure Disposition: 01 Home, Self Care Clinical Impression: Gastroenteritis Condition: Stable Instructions: ED Food Poison Or Gastroenteritis Follow-Up: Telma Allen PA-C [Primary Care Provider] - Prescriptions: Ondansetron Odt [Zofran] 4 mg TL Q6H PRN #10 tablet PRN Reason: Nausea / Vomiting
[2018-03-08] MEDS ORDERED: SODIUM CHLORIDE 0.9% 1,000 ML IV ONE ×2 (13:55→15:08)
[2018-03-08] MEDS ORDERED: ONDANSETRON 4 MG/2 ML VIAL IVP STA (13:55)
[2018-03-08 16:03] LABS: BILIRUBIN,URINE NEGATIVE (NEGATIVE); GLUCOSE, URINE (UA) NEGATIVE (NEGATIVE); KETONES,URINE (UA) NEGATIVE (NEGATIVE); LEUKOCYTE ESTERASE, URINE NEGATIVE (NEGATIVE); NITRITE,URINE NEGATIVE (NEGATIVE); OCCULT BLOOD,URINE TRACE-INTA (NEGATIVE); PROTEIN,URINE NEGATIVE (NEGATIVE); UROBILINOGEN,URINE 0.2 (NORMAL) E.U./dL (NORMAL)
[2018-03-08 16:08] LABS: CLARITY,URINE CLEAR (CLEAR)
[2018-03-08 16:29] VITALS: BP 121/68
--- NOTE | 2018-03-09 08:34 | ED Physician Documentation ---
ED Addendum - Addendum Addendum: 03/09/18 08:32 chart accessed for pharmacy call pharmacy states her insurance [employer] will not cover zofran ODT also will not cover non ODT zofran apparently only will pay for zofran for chemo induced NV so will change to phenergan 25 PO q6h PRN NV - ran through EMR and no prior allergy to same and no interactions
== END 2018-03-08 16:30 | disposition home or self-care (01) ==
LOC: ED 11:49
DX: K52.9 Noninfective gastroenteritis and colitis, unspecified (principal); E86.0 Dehydration; I10 Essential (primary) hypertension
CPT/HCPCS: 36415; 80053; 81001; 81003; 83690; 85025; 87086; 96361; 96374; 99283; 99284

== ENCOUNTER 2018-05-04 08:05 | Outpatient (CLI) | payer MEDICARE ==
[2018-05-04 11:59] LABS: BASOPHILS % (AUTO) 0.7 %; EOSINOPHILS # (AUTO) 0.1 10^3/uL (0.0-0.7); EOSINOPHILS % (AUTO) 2.7 %; HGB - HEMOGLOBIN 12.4 g/dL (12.0-16.0); LYMPHOCYTES # (AUTO) 1.4 10^3/uL (1.5-3.5); LYMPHOCYTES % (AUTO) 40.6 %; MEAN CORPUSCULAR HEMOGLOBIN 28.2 pg (27.0-31.0); MEAN CORPUSCULAR HGB CONC 34.4 g/dL (32.0-36.0); MEAN CORPUSCULAR VOLUME 81.9 fL (81.0-99.0); MEAN PLATELET VOLUME 7.6 fL (7.9-10.8); MONOCYTES # (AUTO) 0.3 10^3/uL (0.0-1.0); MONOCYTES % (AUTO) 8.8 %; NEUTROPHILS # (AUTO) 1.7 10^3/uL (1.5-6.6); NEUTROPHILS % (AUTO) 47.2 %; PLT - PLATELET COUNT 265 10^3/uL (130-450); RED BLOOD COUNT 4.39 10^6/uL (4.20-5.40); WHITE BLOOD COUNT 3.5 x10^3/uL (4.8-10.8)
[2018-05-04 12:16] LABS: ALBUMIN 4.3 g/dL (3.2-5.5); ALBUMIN/GLOBULIN RATIO 1.4 (1.0-2.2); ALKALINE PHOSPHATASE 75 IU/L (42-121); ALT ALANINE AMINOTRANSFERASE 21 IU/L (10-60); AST ASPARTATE AMINOTRANSFERASE 28 IU/L (10-42); BILIRUBIN,TOTAL 0.9 mg/dL (0.2-1.0); BUN - BLOOD UREA NITROGEN 12 mg/dL (6-20); CARBON DIOXIDE - CO2 25 mmol/L (21-32); CHLORIDE 101 mmol/L (101-111); CHOL/HDL RATIO 2.4 (<4.4); CHOLESTEROL 236 mg/dL; CREATININE 0.6 mg/dL (0.4-1.0); GFR - MDRD 99 (>89); GLUCOSE 95 mg/dL (70-100); HDL CHOLESTEROL 97 mg/dL; LDL CHOLESTEROL,CALCULATED 126 mg/dL; LDL/HDL RATIO 1.3 (<4.4); SODIUM 136 mmol/L (135-145); TOTAL PROTEIN 7.3 g/dL (6.7-8.2); VLDL CHOLESTEROL 13 mg/dL
== END 2018-05-04 08:06 | disposition home or self-care (01) ==
LOC: LAB.R 08:05
PROVIDERS: ATTEND Physician Assistant Medical
DX: M81.0 Age-related osteoporosis without current pathological fracture (principal); K21.9 Gastro-esophageal reflux disease without esophagitis; Z79.899 Other long term (current) drug therapy; I10 Essential (primary) hypertension; M15.9 Polyosteoarthritis, unspecified; E03.9 Hypothyroidism, unspecified; I77.810 Thoracic aortic ectasia
CPT/HCPCS: 80053; 80061; 82306; 83721; 84443; 85025

== ENCOUNTER 2018-05-16 08:00 | Outpatient (CLI) | payer MEDICARE ==
[2018-05-16 13:43] LABS: BILIRUBIN,URINE NEGATIVE (NEGATIVE); GLUCOSE, URINE (UA) NEGATIVE (NEGATIVE); KETONES,URINE (UA) NEGATIVE (NEGATIVE); LEUKOCYTE ESTERASE, URINE NEGATIVE (NEGATIVE); NITRITE,URINE NEGATIVE (NEGATIVE); OCCULT BLOOD,URINE NEGATIVE (NEGATIVE); PROTEIN,URINE NEGATIVE (NEGATIVE); UROBILINOGEN,URINE 0.2 (NORMAL) E.U./dL (NORMAL)
[2018-05-16 13:45] LABS: CLARITY,URINE CLEAR (CLEAR)
== END 2018-05-16 08:01 | disposition home or self-care (01) ==
LOC: LAB.R 08:00
PROVIDERS: ATTEND Physician Assistant Medical
DX: R35.1 Nocturia (principal)
CPT/HCPCS: 81001; 81003; 87086

== ENCOUNTER 2018-06-20 13:12 | Outpatient (CLI) | payer MEDICARE ==
--- NOTE | 2018-06-21 08:45 | Mammography Report ---
Reason: SCREENING MAMMO Procedure Date: 06/20/2018 Accession Number: [id number] / [id number] Procedure: NAZANIN - Screening Mammo w/Chaz CPT Code: FULL RESULT: EXAM: Screening Mammo w/Chaz DATE: 06/20/2018 1:45 PM CLINICAL HISTORY: Screening encounter. History of breast biopsy around the age of 46. Family history of breast cancer in the mother in her 50s and 60s as well as a sister around the age of 30 and a grandmother in her 40s. TECHNIQUE: Bilateral CC and MLO views were obtained. COMPARISON: 01/25/2017 through 01/04/2012. FINDINGS: The breasts demonstrate diffuse fatty replacement bilaterally. No suspicious masses, clustered microcalcifications, or regions of architectural distortion are identified. IMPRESSION: Negative examination RECOMMENDATION: Routine annual screening unless otherwise clinically indicated. BIRADS CATEGORY 1: Negative STANDARD QUALIFYING STATEMENTS: 1. This examination was not reviewed with the aid of Computer-Aided Detection (CAD). 2. A negative or benign imaging report should not preclude biopsy if clinically suspicious findings are present. 3. Dense breasts may obscure an underlying neoplasm. 4. This examination was reviewed with the aid of 3D breast imaging (tomosynthesis).
== END 2018-06-20 13:13 | disposition home or self-care (01) ==
LOC: DI 13:12
PROVIDERS: ATTEND Physician Assistant Medical
DX: Z12.31 Encounter for screening mammogram for malignant neoplasm of breast (principal); Z80.3 Family history of malignant neoplasm of breast
CPT/HCPCS: 77063; 77067

== ENCOUNTER 2018-06-26 11:13 | Outpatient (CLI) | payer MEDICARE ==
--- NOTE | 2018-06-27 10:15 | DEXA Report ---
Reason: POSTMENOPAUSAL Procedure Date: 06/26/2018 Accession Number: [id number] / [id number] Procedure: DEX - Dexa Spine and/or Hip CPT Code: FULL RESULT: EXAM: Dexa Spine and/or Hip DATE: 06/26/2018 11:35 AM CLINICAL HISTORY: POSTMENOPAUSAL TECHNIQUE: Dual energy x-ray absorptiometry (DXA) was performed on a [employer] System. Regions measured are the AP Spine, femoral neck, and if needed forearm. COMPARISON: 04/01/2016. In accordance with the International Society for Clinical Densitometry (ISCD) guidelines, data from previous exams may be reanalyzed using current recommendations and techniques. This is done to allow a more accurate basis for comparison with the current study. FINDINGS: The data for the lumbar spine is as follows: BMD (g/cm/cm) T-SCORE Z-SCORE REGION L1 0.958 -1.4 -0.3 L2 0.933 -2.2 -1.1 L3 0.946 -2.1 -1.0 L4 1.276 0.6 1.8 TOTAL 1.053 -1.1 0.1 NOTE: All evaluable vertebrae are used for classification The data for the hip is as follows: BMD (g/cm/cm) T-SCORE Z-SCORE REGION Neck 0.913 -0.9 0.5 TOTAL 0.910 -0.8 0.4 NOTE: The femoral neck or total proximal femur, whichever is lowest, is used for classification. DXA RESULTS SUMMARY: Spine SCAN DATE AGE BMD CHANGE VS CHANGE VS PREVIOUS PREVIOUS % [birth year]26[birth year]2018 [age] 1.053 0.044* 4.4* 04/01/2016 [age] 1.009 * Denotes significant change at the 95% confidence level. Denotes dissimilar scan types or analysis methods. DXA RESULTS SUMMARY: Hip SCAN DATE AGE BMD CHANGE VS CHANGE VS PREVIOUS PREVIOUS % [birth year]26[birth year]2018 72.8 0.910 -0.030 -3.2 04/01/2016 70.5 0.940 * Denotes significant change at the 95% confidence level. Denotes dissimilar scan types or analysis methods. IMPRESSION: THE WHO CLASSIFICATION BASED ON THE INTERNATIONAL REFERENCE STANDARD IS OSTEOPENIA. THE FRACTURE RISK IS INCREASED. RECOMMENDATION: Patients with diagnosis of osteoporosis or osteopenia should have regular bone mineral density assessment. For those eligible for Medicare, routine testing is allowed once every 2 years. Testing frequency can be increased for patients who have rapidly progressing disease or for those who are receiving medical therapy to restore bone mass. COMMENT: World Health Organization (WHO) definitions for osteoporosis and osteopenia: NORMAL BMD: T-score at -1.0 or higher, fracture risk is low OSTEOPENIA BMD: T-score between -1.0 and -2.5, fracture risk is increased. OSTEOPOROSIS BMD: T-score at -2.5 or lower, fracture risk is high. National Osteoporosis Foundation recommends: 1. Obtain adequate dietary calcium (at least 1200 mg per day) and vitamin D (400-800 international units per day). 2. Participate, as appropriate, in regular weightbearing and muscle-strengthening exercise. 3. Avoid tobacco use and reduce alcohol and caffeine intake. 4. For more detailed information see the website at www.NOF.org.
== END 2018-06-26 11:14 | disposition home or self-care (01) ==
LOC: DI 11:13
PROVIDERS: ATTEND Physician Assistant Medical
DX: M85.88 Other specified disorders of bone density and structure, other site (principal)
CPT/HCPCS: 77080

== ENCOUNTER 2018-07-03 08:00 | Outpatient (CLI) | payer MEDICARE ==
[2018-07-03 12:18] LABS: BASOPHILS % (AUTO) 0.7 %; EOSINOPHILS # (AUTO) 0.1 10^3/uL (0.0-0.7); EOSINOPHILS % (AUTO) 1.7 %; HGB - HEMOGLOBIN 12.1 g/dL (12.0-16.0); LYMPHOCYTES # (AUTO) 1.6 10^3/uL (1.5-3.5); LYMPHOCYTES % (AUTO) 33.2 %; MEAN CORPUSCULAR HEMOGLOBIN 28.1 pg (27.0-31.0); MEAN CORPUSCULAR HGB CONC 33.8 g/dL (32.0-36.0); MEAN CORPUSCULAR VOLUME 83.2 fL (81.0-99.0); MEAN PLATELET VOLUME 7.6 fL (7.9-10.8); MONOCYTES # (AUTO) 0.5 10^3/uL (0.0-1.0); MONOCYTES % (AUTO) 10.4 %; NEUTROPHILS # (AUTO) 2.6 10^3/uL (1.5-6.6); PLT - PLATELET COUNT 290 10^3/uL (130-450); RED CELL DISTRIBUTION WIDTH 14.7 % (12.0-15.0); WHITE BLOOD COUNT 4.8 x10^3/uL (4.8-10.8)
== END 2018-07-03 23:59 | disposition home or self-care (01) ==
LOC: LAB.R 08:00
PROVIDERS: ATTEND Physician Assistant Medical
DX: R68.89 Other general symptoms and signs (principal)
CPT/HCPCS: 85025

== ENCOUNTER 2018-12-03 15:44 | Emergency (ER) | payer MEDICARE ==
[2018-12-03 16:03] VITALS: BP 143/74
[2018-12-03 16:11] LABS: BILIRUBIN,URINE NEGATIVE (NEGATIVE); GLUCOSE, URINE (UA) NEGATIVE (NEGATIVE); KETONES,URINE (UA) NEGATIVE (NEGATIVE); LEUKOCYTE ESTERASE, URINE LARGE (NEGATIVE); NITRITE,URINE NEGATIVE (NEGATIVE); OCCULT BLOOD,URINE TRACE-INTA (NEGATIVE); PH,URINE 5.5 PH (5.0-7.5); PROTEIN,URINE NEGATIVE (NEGATIVE); UROBILINOGEN,URINE 0.2 (NORMAL) E.U./dL (NORMAL)
[2018-12-03 16:12] LABS: CLARITY,URINE HAZY (CLEAR)
[2018-12-03 16:21] LABS: BACTERIA,URINE Few /HPF (None Seen); RBC,URINE 0-5 /HPF (0-5); SQUAMOUS EPITHELIAL CELL,UR NONE SEEN (<= Few)
--- NOTE | 2018-12-03 17:14 | ED Physician Documentation ---
PD HPI FEMALE - Stated complaint Stated Complaint: FEM - Chief complaint Chief Complaint: UTI - History obtained from History obtained from: Patient - History of Present Illness Timing - onset: How many days ago (3) Timing - duration: Days (3) Timing - details: Gradual onset, Still present Associated symptoms: Dysuria, Urinary frequency. 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 03/08/18 Cephalexin [Keflex] 500 mg PO TID #21 capsule 12/03/18 - Allergies Allergies/Adverse Reactions: Allergies Allergy/AdvReac Type Severity Reaction Status Date / Time Sulfa (Sulfonamide Allergy Itching Verified 12/03/18 16:03 Antibiotics) - Social History Does the pt smoke?: No Smoking Status: Never smoker Does the pt drink ETOH?: No Does the pt have substance abuse?: No - Immunizations Immunizations are current?: Yes - POLST Patient has POLST: No POLST Status: Full Code PD ED PE NORMAL - Vitals Vital signs reviewed: Yes - General General: Alert and oriented X 3, No acute distress, Well developed/nourished - Abdomen Abdomen: Soft, Non tender - Back Back: No CVA TTP - Derm Derm: Normal color, Warm and dry - Neuro Neuro: Alert and oriented X 3, No motor deficit, Normal speech Results - Vitals Vitals: Oxygen O2 Source Room air - Labs Labs: Microbiology 12/03/18 15:55 Urine Culture - Final Urine,Clean Catch Citrobacter Koseri Laboratory Tests 12/03/18 15:55 Urine Color YELLOW Urine Clarity HAZY Urine pH 5.5 Ur Specific Willis <=1.005 Urine Protein NEGATIVE Urine Glucose (UA) NEGATIVE Urine Ketones NEGATIVE Urine Occult Blood TRACE-INTA Urine Nitrite NEGATIVE Urine Bilirubin NEGATIVE Urine Urobilinogen 0.2 (NORMAL) Ur Leukocyte Esterase LARGE H Urine RBC 0-5 Urine WBC >25 H Ur Squamous Epith Cells NONE SEEN Urine Bacteria Few Ur Microscopic Review INDICATED Urine Culture Comments INDICATED PD MEDICAL DECISION MAKING - ED course Complexity details: considered differential, d/w patient Departure - Departure Disposition: Home, Self Care Clinical Impression: Dysuria UTI (urinary tract infection) Qualifiers: Urinary tract infection type: acute cystitis Hematuria presence: without hematuria Qualified Code(s): N30.00 - Acute cystitis without hematuria Condition: Stable Record reviewed to determine appropriate education?: Yes Instructions: ED UTI Cystitis Female Follow-Up: Telma Nolasco ARNP, CAR RENTAL MANAGER-C [Primary Care Provider] - Prescriptions: Cephalexin [Keflex] 500 mg PO TID #21 capsule Comments: Stay well-hydrated. Use Tylenol or ibuprofen if needed for discomfort. Use cephalexin antibiotic 3 times a day for a week for the infection. Recheck if not improving in the next couple of days. Discharge Date/Time: 12/03/18 17:41
[2018-12-03] MEDS ORDERED: cephALEXin 250 MG CAPSULE PO STA (17:16)
== END 2018-12-03 17:41 | disposition home or self-care (01) ==
LOC: ED 15:44
DX: N30.00 Acute cystitis without hematuria (principal); I10 Essential (primary) hypertension
CPT/HCPCS: 81001; 87077; 87086; 87181; 99281; 99283; A9270; 81003

== ENCOUNTER 2019-02-20 08:00 | Outpatient (CLI) | payer MEDICARE | END 2019-02-20 23:59 | disposition home or self-care (01) | LOC: LAB.R 08:00 | PROVIDERS: ATTEND Family Medicine | DX: N30.90 Cystitis, unspecified without hematuria (principal) | CPT/HCPCS: 87077; 87086; 87181 ==

== ENCOUNTER 2019-02-26 14:52 | Outpatient (CLI) | payer MEDICARE ==
--- NOTE | 2019-02-26 18:27 | CARDIAC PROCEDURE NOTE ---
DATE OF SERVICE: 02/26/2019 Physician: Geena Galarza MD, [facility] INDICATION: Nonrheumatic aortic valve insufficiency. CARDIAC RISK FACTORS: Postmenopausal status, hypertension. PROCEDURE: After signing informed consent, the patient underwent a Leonel- protocol treadmill stress test. RESTING HEART RATE: 86, PEAK HEART RATE 169 (114% predicted maximum heart rate for age). RESTING BLOOD PRESSURE: 160/100. PEAK BLOOD PRESSURE: 191/80, (patient did not take her HCTZ for 4 days and did not take her Atenolol this morning). This patient exercised for 6 minutes and 10 seconds on a Leonel-protocol treadmill stress test. She achieved a peak heart rate of 169, which is 114% predicted maximum heart rate for age and 7.3 METS. Patient developed no chest pain. She developed mild shortness of breath in stage II and moderate to severe shortness of breath at peak. Oxygen saturation was 94 to 96% at peak on room air. RESTING EKG: Normal sinus rhythm, left atrial enlargement, otherwise within normal limits. EKG AT PEAK: No ST or T-wave changes. However, PACs developed, and frequent atrial couplets, PACs with compensatory pauses as frequent as in a trigeminal pattern, also rare PVCs. These subsided after 3 minutes of recovery. SUMMARY 1. Fair to good exercise tolerance. 2. Essentially normal resting EKG. 3. No ischemic changes by EKG criteria at a good level of stress; however, the patient developed significant atrial dysrhythmias with exercise. 4. No imaging was ordered with this test. cc: Joe Colon MD TD: 02/26/2019 17:32 MTDD
== END 2019-02-26 14:53 | disposition home or self-care (01) ==
LOC: DI 14:52
PROVIDERS: ATTEND Internal Medicine Cardiovascular Disease
DX: I35.1 Nonrheumatic aortic (valve) insufficiency (principal); I10 Essential (primary) hypertension; Z78.0 Asymptomatic menopausal state
CPT/HCPCS: 93017

== ENCOUNTER 2019-05-20 08:22 | Outpatient (CLI) | payer MEDICARE ==
[2019-05-20 08:46] LABS: BASOPHILS % (AUTO) 0.9 %; EOSINOPHILS # (AUTO) 0.1 10^3/uL (0.0-0.7); EOSINOPHILS % (AUTO) 1.5 %; HGB - HEMOGLOBIN 12.4 g/dL (12.0-16.0); LYMPHOCYTES # (AUTO) 1.3 10^3/uL (1.5-3.5); MEAN CORPUSCULAR HEMOGLOBIN 28.1 pg (27.0-31.0); MEAN CORPUSCULAR HGB CONC 32.5 g/dL (32.0-36.0); MEAN CORPUSCULAR VOLUME 86.6 fL (81.0-99.0); MEAN PLATELET VOLUME 8.9 fL (7.9-10.8); MONOCYTES # (AUTO) 0.3 10^3/uL (0.0-1.0); MONOCYTES % (AUTO) 9.3 %; NEUTROPHILS # (AUTO) 1.7 10^3/uL (1.5-6.6); NEUTROPHILS % (AUTO) 49.3 %; PLT - PLATELET COUNT 254 10^3/uL (130-450); RED BLOOD COUNT 4.41 10^6/uL (4.20-5.40); RED CELL DISTRIBUTION WIDTH 13.3 % (12.0-15.0); WHITE BLOOD COUNT 3.4 x10^3/uL (4.8-10.8)
[2019-05-20 09:00] LABS: ALBUMIN 4.3 g/dL (3.2-5.5); ALBUMIN/GLOBULIN RATIO 1.4 (1.0-2.2); ALKALINE PHOSPHATASE 78 IU/L (42-121); ALT ALANINE AMINOTRANSFERASE 20 IU/L (10-60); AST ASPARTATE AMINOTRANSFERASE 25 IU/L (10-42); BILIRUBIN,TOTAL 0.8 mg/dL (0.2-1.0); BUN - BLOOD UREA NITROGEN 9 mg/dL (6-20); CALCIUM 9.1 mg/dL (8.5-10.3); CARBON DIOXIDE - CO2 30 mmol/L (21-32); CHLORIDE 97 mmol/L (101-111); CHOL/HDL RATIO 2.7 (<4.4); CHOLESTEROL 232 mg/dL; CREATININE 0.6 mg/dL (0.4-1.0); GFR - MDRD 98 (>89); GLUCOSE 95 mg/dL (70-100); HDL CHOLESTEROL 85 mg/dL; LDL CHOLESTEROL,CALCULATED 129 mg/dL; LDL/HDL RATIO 1.5 (<4.4); SODIUM 136 mmol/L (135-145); TOTAL PROTEIN 7.3 g/dL (6.7-8.2); VLDL CHOLESTEROL 18 mg/dL
== END 2019-05-20 08:23 | disposition home or self-care (01) ==
LOC: LAB 08:22
PROVIDERS: ATTEND Nurse Practitioner
DX: Z00.00 Encounter for general adult medical examination without abnormal findings (principal); I77.819 Aortic ectasia, unspecified site; R00.2 Palpitations; Z79.899 Other long term (current) drug therapy; R00.1 Bradycardia, unspecified; K21.9 Gastro-esophageal reflux disease without esophagitis; G25.81 Restless legs syndrome; E03.9 Hypothyroidism, unspecified; M81.0 Age-related osteoporosis without current pathological fracture; I10 Essential (primary) hypertension
CPT/HCPCS: 36415; 80053; 80061; 82306; 83721; 84443; 85025

== ENCOUNTER 2019-08-23 23:47 | Emergency (ER) | payer MEDICARE ==
--- NOTE | 2019-08-24 01:03 | ED Physician Documentation ---
History of Present Illness - Stated complaint Stated Complaint: SOA/COUGH/CAN'T SWOLLOW - Chief complaint Chief Complaint: Heent - History obtained from History obtained from: Patient - History of Present Illness Timing: How many weeks ago (1) Pain level now: 2 Improved by: no ameliorating factors Worsened by: no exacerbating factors (cough; but sore throat worse with swallowing) - Additonal information Additional information: c/o 1 week of sore throat, and over past several days has developed productive cough. She had sinus congestion although this is improving. She saw her PMD and was prescribed mucinex and tessalon but has had little relief of the cough and sore throat with these. Tmax 99.5. Review of Systems Constitutional: reports: Fever (Tmax 99.5) Nose: reports: Congestion Throat: reports: Sore throat Cardiac: reports: Reviewed and negative Respiratory: reports: Cough. 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 03/08/18 Cephalexin [Keflex] 500 mg PO TID #21 capsule 12/03/18 Albuterol Sulf [Ventolin Hfa 1 - 2 puffs INH Q4HR PRN #1 inhaler 08/24/19 Inhaler] Amox/Clav 875/125 [Augmentin] 1 each PO Q12H #19 tablet 08/24/19 predniSONE [Prednisone] 40 mg PO DAILY 3 Days #6 tablet 08/24/19 - Allergies Allergies/Adverse Reactions: Allergies Allergy/AdvReac Type Severity Reaction Status Date / Time Sulfa (Sulfonamide Allergy Itching Verified 08/24/19 00:00 Antibiotics) - Social History Does the pt smoke?: No Smoking Status: Never smoker Does the pt drink ETOH?: No Does the pt have substance abuse?: No - Immunizations Immunizations are current?: Yes - POLST Patient has POLST: No POLST Status: Full Code PD ED PE NORMAL - Vitals Vital signs reviewed: Yes - General General: Alert and oriented X 3, No acute distress, Well developed/nourished, Other (hoarse voice) - HEENT HEENT: Moist mucous membranes - Neck Neck: Supple, no meningeal sign - Cardiac Cardiac: RRR, No murmur - Respiratory Respiratory: No respiratory distress, Other (scattered rhonchi bilaterally upper lung youngblood) PD ED PE EXPANDED - HEENT HEENT: Pharyngeal erythema (mild posterior o/p erythema). No: Tonsillar exudate Results - Vitals Vitals: Vital Signs - 24 hr 08/23/19 08/24/19 08/24/19 23:57 01:07 01:24 Temperature 36.9 C Heart Rate 73 79 Respiratory 19 17 17 Rate Blood Pressure 176/69 H 113/45 L O2 Saturation 97 99 08/24/19 08/24/19 08/24/19 01:26 01:40 01:51 Temperature Heart Rate 61 60 Respiratory 17 20 17 Rate Blood Pressure 123/96 H O2 Saturation 100 08/24/19 02:55 Temperature Heart Rate Respiratory 18 Rate Blood Pressure O2 Saturation Oxygen O2 Source Room air - Labs Labs: Laboratory Tests 08/24/19 08/24/19 00:05 01:36 Influenza A (Rapid) Negative Influenza B (Rapid) Negative Group A Strep Rapid POSITIVE H - Rads (name of study) chest xray Radiology: Prelim report reviewed, See rad report PD MEDICAL DECISION MAKING - ED course Complexity details: reviewed results, re-evaluated patient, considered differential, d/w patient ED course: reported improvement with duoneb. Strep test is positive for strep, rx augmentin. Departure - Departure Disposition: 01 Home, Self Care Clinical Impression: Strep pharyngitis Condition: Good Instructions: ED Strep Pharyngitis Conf Follow-Up: Gaurav,Telma, SUPERINTENDENT PIER, INSPECTOR SHELLS-C [Primary Care Provider] - Prescriptions: Albuterol Sulf [Ventolin Hfa Inhaler] 1 - 2 puffs INH Q4HR PRN #1 inhaler PRN Reason: Shortness Of Air/Wheezing Amox/Clav 875/125 [Augmentin] 1 each PO Q12H #19 tablet predniSONE [Prednisone] 40 mg PO DAILY 3 Days #6 tablet Discharge Date/Time: 08/24/19 02:58
[2019-08-24] MEDS ORDERED: IPRATROPIUM/ALBUTEROL 3 ML NEB INH STA (01:13)
[2019-08-24 01:47] LABS: RAPID STREP SCREEN POSITIVE (Negative)
--- NOTE | 2019-08-24 01:50 | XRAY Report ---
Reason: cough, dyspnea Procedure Date: 08/24/2019 Accession Number: [id number] / [id number] Procedure: XR - Chest 2 View X-Ray CPT Code: 39411 Final Report FULL RESULT: EXAM: CHEST RADIOGRAPHY EXAM DATE: 08/24/2019 01:38 AM. CLINICAL HISTORY: Cough, dyspnea. COMPARISON: CHEST 2 VIEW 10/26/2017 10:41 AM ABDOMEN/PELVIS W/ 01/23/2015 8:54 AM. TECHNIQUE: 2 views. FINDINGS: Lungs/Pleura: No focal opacities evident. No pleural effusion. No pneumothorax. Normal volumes. Mediastinum: Normal heart size. Stable tortuous thoracic aorta. Other: None. IMPRESSION: No acute process seen in the chest. RADIA
[2019-08-24 01:52] VITALS: BP 123/96
[2019-08-24] MEDS ORDERED: AMOX/CLAV 875 MG/125 MG TABLET PO STA (02:32)
[2019-08-24] MEDS ORDERED: predniSONE 20 MG TABLET PO STA (02:32)
== END 2019-08-24 02:58 | disposition home or self-care (01) ==
LOC: ED 23:47
DX: J02.0 Streptococcal pharyngitis (principal); R05 Cough; I10 Essential (primary) hypertension
CPT/HCPCS: 71046; 87275; 87276; 87430; 94640; 99284; A9270; J7512

== ENCOUNTER 2019-11-27 09:54 | Outpatient (CLI) | payer MEDICARE ==
--- NOTE | 2019-11-27 14:51 | Mammography Report ---
BILATERAL DIGITAL SCREENING MAMMOGRAM 3D/2D: 11/27/2019 CLINICAL: Routine screening. Comparison is made to exams dated: 06/20/2018 mammogram, 01/25/2017 mammogram, and 12/20/2015 mammogram - [facility]. The tissue of both breasts is predominantly fatty. No significant masses, calcifications, or other findings are seen in either breast. There has been no significant interval change. IMPRESSION: NEGATIVE There is no mammographic evidence of malignancy. A 1 year screening mammogram is recommended. This exam was interpreted at Station ID: [id number]. NOTE: For mammograms, a report in lay terms will be sent to the patient. Approximately 15% of breast malignancies will not be visualized mammographically. In the management of a palpable breast mass, a negative mammogram must not discourage biopsy of a clinically suspicious lesion. Electronically Signed By: Rohini waller/lara:11/27/2019 12:34:03 ACR BI-RADS Category 1: Negative [id number] PARENCHYMAL PATTERN: (F) - The breast(s) demonstrate(s) diffuse fatty replacement. BI-RADS CATEGORY: (1) - 1 RECOMMENDATION: (ANNUAL) - Recommend routine annual screening mammography. [id number] 1 year screening LATERALITY: (B)
== END 2019-11-27 09:55 | disposition home or self-care (01) ==
LOC: DI 09:54
DX: Z12.31 Encounter for screening mammogram for malignant neoplasm of breast (principal)
CPT/HCPCS: 77063; 77067

== ENCOUNTER 2019-12-04 11:39 | Outpatient (CLI) | payer MEDICARE | END 2019-12-04 23:59 | disposition home or self-care (01) | LOC: LAB.WCP 11:39 | PROVIDERS: ATTEND Registered Nurse | DX: N39.0 Urinary tract infection, site not specified (principal) | CPT/HCPCS: 87077; 87086; 87181 ==

== ENCOUNTER 2020-01-07 07:00 | Outpatient (CLI) | payer MEDICARE | END 2020-01-07 23:59 | disposition home or self-care (01) | LOC: LAB.R 07:00 | PROVIDERS: ATTEND Nurse Practitioner Family | DX: R30.0 Dysuria (principal) | CPT/HCPCS: 87077; 87086; 87181 ==

== ENCOUNTER 2020-03-07 08:00 | Outpatient (CLI) | payer MEDICARE | END 2020-03-07 23:59 | disposition home or self-care (01) | LOC: LAB.S 08:00 | PROVIDERS: ATTEND Physician Assistant | DX: N39.0 Urinary tract infection, site not specified (principal) | CPT/HCPCS: 87077; 87086; 87181 ==

== ENCOUNTER 2020-04-24 16:17 | Outpatient (CLI) | payer MEDICARE ==
--- NOTE | 2020-04-24 18:23 | Ultrasound Report ---
PROCEDURE: Retroperitoneal INDICATIONS: HISTORY OF UTI TECHNIQUE: Real-time scanning was performed of the retroperitoneal organs, with image documentation. COMPARISON: None. FINDINGS: Kidneys: Kidneys are normal in size. Right kidney measures 12.4 cm long; left kidney measures 12.1 cm long. Right renal cortical thickness is 1.2 cm; left renal cortical thickness is 1.8 cm. No pamela d masses, no hydronephrosis. There is a 9 mm diameter left interpolar renal calculus measuring 9 mm. Prevoid urinary bladder volume is 400 cc. Postvoid residual is 21 cc. No ureteral jets are seen. IMPRESSION: 1. No hydronephrosis. 2. Nonobstructing left renal calculus. Reviewed by: Lashae Elizabeth MD on 04/24/2020 6:21 PM [facility] Approved by: Lashae Elizabeth MD on 04/24/2020 6:21 PM [facility] Station ID: [id number]
== END 2020-04-24 16:18 | disposition home or self-care (01) ==
LOC: DI 16:17
PROVIDERS: ATTEND Urology
DX: N20.0 Calculus of kidney (principal)
CPT/HCPCS: 76770

== ENCOUNTER 2020-11-26 07:39 | Outpatient (CLI) | payer MEDICARE ==
[2020-11-26 07:53] LABS: BASOPHILS % (AUTO) 0.6 %; EOSINOPHILS # (AUTO) 0.1 10^3/uL (0.0-0.7); EOSINOPHILS % (AUTO) 1.7 %; HCT - HEMATOCRIT 39.7 % (37.0-47.0); HGB - HEMOGLOBIN 12.9 g/dL (12.0-16.0); LYMPHOCYTES # (AUTO) 1.4 10^3/uL (1.5-3.5); LYMPHOCYTES % (AUTO) 31.2 %; MEAN CORPUSCULAR HEMOGLOBIN 27.9 pg (27.0-31.0); MEAN CORPUSCULAR HGB CONC 32.5 g/dL (32.0-36.0); MEAN CORPUSCULAR VOLUME 85.7 fL (81.0-99.0); MEAN PLATELET VOLUME 8.7 fL (7.9-10.8); MONOCYTES # (AUTO) 0.4 10^3/uL (0.0-1.0); MONOCYTES % (AUTO) 9.3 %; NEUTROPHILS # (AUTO) 2.6 10^3/uL (1.5-6.6); NEUTROPHILS % (AUTO) 57.2 %; PLT - PLATELET COUNT 263 10^3/uL (130-450); RED BLOOD COUNT 4.63 10^6/uL (4.20-5.40); RED CELL DISTRIBUTION WIDTH 13.7 % (12.0-15.0); WHITE BLOOD COUNT 4.6 x10^3/uL (4.8-10.8)
[2020-11-26 08:17] LABS: ALBUMIN 4.7 g/dL (3.2-5.5); ALBUMIN/GLOBULIN RATIO 1.5 (1.0-2.2); ALKALINE PHOSPHATASE 72 IU/L (42-121); ALT ALANINE AMINOTRANSFERASE 21 IU/L (10-60); AST ASPARTATE AMINOTRANSFERASE 26 IU/L (10-42); BILIRUBIN,TOTAL 0.7 mg/dL (0.2-1.0); BUN - BLOOD UREA NITROGEN 15 mg/dL (6-20); CALCIUM 9.5 mg/dL (8.5-10.3); CARBON DIOXIDE - CO2 31 mmol/L (21-32); CHLORIDE 96 mmol/L (101-111); CHOL/HDL RATIO 2.5 (<4.4); CHOLESTEROL 266 mg/dL; CREATININE 0.7 mg/dL (0.4-1.0); GFR - MDRD 82 (>89); GLUCOSE 101 mg/dL (70-100); HDL CHOLESTEROL 106 mg/dL; LDL CHOLESTEROL,CALCULATED 148 mg/dL; LDL/HDL RATIO 1.4 (<4.4); SODIUM 136 mmol/L (135-145); TOTAL PROTEIN 7.8 g/dL (6.7-8.2); TRIGLYCERIDES 58 mg/dL; VLDL CHOLESTEROL 12 mg/dL
[2020-11-26 08:24] LABS: THYROID STIMULATING HORMONE 2.45 uIU/mL (0.34-5.60)
== END 2020-11-26 07:40 | disposition home or self-care (01) ==
LOC: LAB 07:39
PROVIDERS: ATTEND Registered Nurse
DX: I35.1 Nonrheumatic aortic (valve) insufficiency (principal); R00.2 Palpitations; Z79.899 Other long term (current) drug therapy; E03.9 Hypothyroidism, unspecified; I10 Essential (primary) hypertension; K21.9 Gastro-esophageal reflux disease without esophagitis
CPT/HCPCS: 36415; 80053; 80061; 83721; 84443; 85025

== ENCOUNTER 2021-01-18 13:13 | Outpatient (CLI) | payer MEDICARE | END 2021-01-18 13:14 | disposition home or self-care (01) | LOC: RT 13:13 | PROVIDERS: ATTEND Registered Nurse | DX: Z87.891 Personal history of nicotine dependence (principal) | CPT/HCPCS: 94010; 94729 ==

== ENCOUNTER 2021-02-11 13:36 | Outpatient (CLI) | payer MEDICARE ==
[2021-02-11 20:17] LABS: THYROID STIMULATING HORMONE 0.58 uIU/mL (0.34-5.60)
== END 2021-02-11 13:37 | disposition home or self-care (01) ==
LOC: LAB.S 13:36
PROVIDERS: ATTEND Registered Nurse
DX: Z01.84 Encounter for antibody response examination (principal); E03.9 Hypothyroidism, unspecified
CPT/HCPCS: 36415; 81599; 84443; 86769

== ENCOUNTER 2021-03-11 13:34 | Outpatient (CLI) | payer MEDICARE ==
--- NOTE | 2021-03-12 08:41 | Mammography Report ---
BILATERAL DIGITAL SCREENING MAMMOGRAM 3D/2D: 03/11/2021 CLINICAL: Routine screening. Comparison is made to exams dated: 11/27/2019 mammogram, 06/20/2018 mammogram, 01/25/2017 mammogram, 2015 mammogram, 11/27/2014 mammogram, and 09/19/2013 mammogram - [facility]. The tiss ue of both breasts is predominantly fatty. No significant masses, calcifications, or other findings are seen in either breast. There has been no significant interval change. IMPRESSION: NEGATIVE There is no mammographic evidence of malignancy. A 1 year screening mammogram is recommended. This exam was interpreted at Station ID: [id number]. NOTE: For mammograms, a report in lay terms will be sent to the patient. Approximately 15% of breast malignancies will not be visualized mammographically. In the management of a palpable breast mass, a negative mammogram must not discourage biopsy of a clinically suspicious lesion. Electronically Signed By: Salomon Santiago M.D. aty/lara:03/11/2021 16:37:22 ACR BI-RADS Category 1: Negative 3341F PARENCHYMAL PATTERN: (F) - The breast(s) demonstrate(s) diffuse fatty replacement. BI-RADS CATEGORY: (1) - 1 RECOMMENDATION: (ANNUAL) - Recommend routine annual screening mammography. 20220312 1 year screening LATERALITY: (B)
== END 2021-03-11 13:35 | disposition home or self-care (01) ==
LOC: DI 13:34
PROVIDERS: ATTEND Registered Nurse
DX: Z12.31 Encounter for screening mammogram for malignant neoplasm of breast (principal)

== ENCOUNTER 2021-11-10 07:58 | Outpatient (CLI) | payer MEDICARE ==
[2021-11-10 08:17] LABS: BASOPHILS % (AUTO) 0.5 %; EOSINOPHILS # (AUTO) 0.1 10^3/uL (0.0-0.7); EOSINOPHILS % (AUTO) 1.6 %; HCT - HEMATOCRIT 38.6 % (37.0-47.0); HGB - HEMOGLOBIN 12.4 g/dL (12.0-16.0); LYMPHOCYTES # (AUTO) 1.4 10^3/uL (1.5-3.5); LYMPHOCYTES % (AUTO) 35.4 %; MEAN CORPUSCULAR HEMOGLOBIN 26.9 pg (27.0-31.0); MEAN CORPUSCULAR HGB CONC 32.1 g/dL (32.0-36.0); MEAN CORPUSCULAR VOLUME 83.7 fL (81.0-99.0); MONOCYTES # (AUTO) 0.4 10^3/uL (0.0-1.0); MONOCYTES % (AUTO) 10.4 %; NEUTROPHILS % (AUTO) 51.8 %; PLT - PLATELET COUNT 269 10^3/uL (130-450); RED BLOOD COUNT 4.61 10^6/uL (4.20-5.40); RED CELL DISTRIBUTION WIDTH 13.9 % (12.0-15.0); WHITE BLOOD COUNT 3.8 x10^3/uL (4.8-10.8)
[2021-11-10 08:30] LABS: CHOL/HDL RATIO 2.1 (<4.4); CHOLESTEROL 217 mg/dL; HDL CHOLESTEROL 105 mg/dL; TRIGLYCERIDES 39 mg/dL
[2021-11-10 08:41] LABS: THYROID STIMULATING HORMONE 0.28 uIU/mL (0.34-5.60)
[2021-11-10 09:25] LABS: FREE T4 (FREE THYROXINE) 1.56 ng/dL (0.58-1.64)
== END 2021-11-10 07:59 | disposition home or self-care (01) ==
LOC: LAB 07:58
PROVIDERS: ATTEND Registered Nurse
DX: E03.9 Hypothyroidism, unspecified (principal); Z13.220 Encounter for screening for lipoid disorders; Z79.899 Other long term (current) drug therapy
CPT/HCPCS: 36415; 80061; 83721; 84439; 84443; 85025

== ENCOUNTER 2021-11-18 08:00 | Outpatient (CLI) | payer MEDICARE | END 2021-11-18 23:59 | disposition home or self-care (01) | LOC: LAB.S 08:00 | PROVIDERS: ATTEND Physician Assistant | DX: J06.9 Acute upper respiratory infection, unspecified (principal); Z20.822 Contact with and (suspected) exposure to COVID-19 ==

== ENCOUNTER 2022-03-15 16:30 | Outpatient (CLI) | payer MEDICARE | END 2022-03-15 16:31 | disposition home or self-care (01) | LOC: LAB.N 16:30 | PROVIDERS: ATTEND Nurse Practitioner | DX: N39.0 Urinary tract infection, site not specified (principal) | CPT/HCPCS: 87077; 87086; 87181 ==

== ENCOUNTER 2022-03-18 09:18 | Outpatient (CLI) | payer MEDICARE ==
--- NOTE | 2022-03-21 10:04 | Mammography Report ---
BILATERAL DIGITAL SCREENING MAMMOGRAM 3D/2D: 03/18/2022 CLINICAL: Routine screening. Comparison is made to exams dated: 03/11/2021 mammogram, 11/27/2019 mammogram, 06/20/2018 mammogram, 01/25 mammogram, 12/20/2015 mammogram, and 11/27/2014 mammogram - [facility]. Both breasts are almost entirely fatty (category a/<25% glandular tissue). No significant masses, calcifications, or other findings are seen in either breast. There has been no significant interval change. IMPRESSION: NEGATIVE There is no mammographic evidence of malignancy. A 1 year screening mammogram is recommended. Based on the Tyrer Cuzick model (a risk assessment model) the patients lifetime risk is 5.4% and her 10 year risk is 5.4%. According to the ACR, ACS, and NCCN guidelines, an annual breast MRI exam alida g with mammogram is recommended if the patients lifetime risk is 20% or greater. This exam was interpreted at Station ID: [id number]. NOTE: For mammograms, a report in lay terms will be sent to the patient. Approximately 15% of breast malignancies will not be visualized mammographically. In the management of a palpable breast mass, a negative mammogram must not discourage biopsy of a clinically suspicious lesion. Electronically Signed By: Alice zuleta/lara:03/18/2022 11:58:27 ACR BI-RADS Category 1: Negative 3341F PARENCHYMAL PATTERN: (F) - The breast(s) demonstrate(s) diffuse fatty replacement. BI-RADS CATEGORY: (1) - 1 RECOMMENDATION: (ANNUAL) - Recommend routine annual screening mammography. [id number] 1 year screening LATERALITY: (B)
== END 2022-03-18 09:19 | disposition home or self-care (01) ==
LOC: DI 09:18
DX: Z12.31 Encounter for screening mammogram for malignant neoplasm of breast (principal)

== ENCOUNTER 2022-03-18 09:41 | Outpatient (CLI) | payer MEDICARE ==
[2022-03-18 10:21] LABS: T4 (THYROXINE) 7.34 ug/dL (6.09-12.23)
[2022-03-18 10:25] LABS: THYROID STIMULATING HORMONE 3.54 uIU/mL (0.34-5.60)
== END 2022-03-18 09:42 | disposition home or self-care (01) ==
LOC: LAB 09:41
PROVIDERS: ATTEND Registered Nurse
DX: E03.9 Hypothyroidism, unspecified (principal)
CPT/HCPCS: 36415; 84436; 84443; 84480

== ENCOUNTER 2022-12-30 09:47 | Outpatient (CLI) | payer MEDICARE ==
[2022-12-30 10:01] LABS: BASOPHILS % (AUTO) 0.7 %; EOSINOPHILS # (AUTO) 0.1 10^3/uL (0.0-0.7); EOSINOPHILS % (AUTO) 1.7 %; HCT - HEMATOCRIT 37.4 % (37.0-47.0); HGB - HEMOGLOBIN 12.1 g/dL (12.0-16.0); LYMPHOCYTES # (AUTO) 1.7 10^3/uL (1.5-3.5); LYMPHOCYTES % (AUTO) 35.9 %; MEAN CORPUSCULAR HEMOGLOBIN 27.2 pg (27.0-31.0); MEAN CORPUSCULAR HGB CONC 32.4 g/dL (32.0-36.0); MEAN PLATELET VOLUME 8.8 fL (7.9-10.8); MONOCYTES # (AUTO) 0.5 10^3/uL (0.0-1.0); MONOCYTES % (AUTO) 10.9 %; NEUTROPHILS # (AUTO) 2.3 10^3/uL (1.5-6.6); NEUTROPHILS % (AUTO) 50.8 %; PLT - PLATELET COUNT 248 10^3/uL (130-450); RED BLOOD COUNT 4.45 10^6/uL (4.20-5.40); RED CELL DISTRIBUTION WIDTH 14.5 % (12.0-15.0); WHITE BLOOD COUNT 4.6 x10^3/uL (4.8-10.8)
[2022-12-30 10:03] LABS: BILIRUBIN,URINE NEGATIVE (NEGATIVE); GLUCOSE, URINE (UA) NEGATIVE (NEGATIVE); KETONES,URINE (UA) NEGATIVE (NEGATIVE); LEUKOCYTE ESTERASE, URINE NEGATIVE (NEGATIVE); NITRITE,URINE NEGATIVE (NEGATIVE); OCCULT BLOOD,URINE NEGATIVE (NEGATIVE); PH,URINE 6.5 PH (5.0-7.5); PROTEIN,URINE NEGATIVE (NEGATIVE); UROBILINOGEN,URINE 0.2 (NORMAL) E.U./dL (NORMAL)
[2022-12-30 10:12] LABS: BACTERIA,URINE Rare /HPF (None Seen); CLARITY,URINE CLEAR (CLEAR); RBC,URINE None Seen /HPF (0-5); SQUAMOUS EPITHELIAL CELL,UR FEW Squamous (<= Few); WBC,URINE 0-3 /HPF (0-5)
[2022-12-30 10:18] LABS: ALBUMIN 4.1 g/dL (3.2-5.5); ALBUMIN/GLOBULIN RATIO 1.5 (1.0-2.2); ALKALINE PHOSPHATASE 65 IU/L (42-121); ALT ALANINE AMINOTRANSFERASE 18 IU/L (10-60); AST ASPARTATE AMINOTRANSFERASE 23 IU/L (10-42); BILIRUBIN,TOTAL 0.7 mg/dL (0.2-1.0); BUN - BLOOD UREA NITROGEN 10 mg/dL (6-20); CALCIUM 8.9 mg/dL (8.5-10.3); CARBON DIOXIDE - CO2 29 mmol/L (21-32); CHLORIDE 97 mmol/L (101-111); CHOL/HDL RATIO 2.5 (<4.4); CHOLESTEROL 226 mg/dL; CREATININE 0.6 mg/dL (0.4-1.0); GFR - MDRD 97 (>89); GLUCOSE 97 mg/dL (70-100); HDL CHOLESTEROL 91 mg/dL; LDL CHOLESTEROL,CALCULATED 116 mg/dL; LDL/HDL RATIO 1.3 (<4.4); SODIUM 134 mmol/L (135-145); TOTAL PROTEIN 6.9 g/dL (6.7-8.2); TRIGLYCERIDES 97 mg/dL; VLDL CHOLESTEROL 19 mg/dL
[2022-12-30 10:31] LABS: THYROID STIMULATING HORMONE 1.14 uIU/mL (0.34-5.60)
[2022-12-30 10:33] LABS: FREE T3 5.36 pg/mL (2.5-3.9); FREE T4 (FREE THYROXINE) 1.79 ng/dL (0.58-1.64)
== END 2022-12-30 09:48 | disposition home or self-care (01) ==
LOC: LAB 09:47
PROVIDERS: ATTEND Family Medicine
DX: Z00.00 Encounter for general adult medical examination without abnormal findings (principal); E55.9 Vitamin D deficiency, unspecified; E89.0 Postprocedural hypothyroidism
CPT/HCPCS: 36415; 80053; 80061; 81001; 82306; 83721; 84439; 84443; 84481; 85025; 87086

== ENCOUNTER 2023-01-31 16:21 | Outpatient (CLI) | payer MEDICARE ==
[2023-02-01 17:08] LABS: SJOGREN'S ANTI-SS-A <0.2 AI (0.0-0.9); SJOGREN'S ANTI-SS-B <0.2 AI (0.0-0.9)
[2023-02-03 14:10] LABS: ANTINUCLEAR ANTIBODIES IFA Positive (.)
== END 2023-01-31 16:22 | disposition home or self-care (01) ==
LOC: LAB 16:21
PROVIDERS: ATTEND Nurse Practitioner
DX: R21 Rash and other nonspecific skin eruption (principal)
CPT/HCPCS: 36415; 85651; 86038; 86141; 86235

== ENCOUNTER 2023-03-07 08:53 | Outpatient (CLI) | payer MEDICARE ==
[2023-03-07 09:04] LABS: BASOPHILS % (AUTO) 0.3 %; EOSINOPHILS # (AUTO) 0.1 10^3/uL (0.0-0.7); EOSINOPHILS % (AUTO) 1.7 %; HCT - HEMATOCRIT 39.7 % (37.0-47.0); HGB - HEMOGLOBIN 12.7 g/dL (12.0-16.0); LYMPHOCYTES # (AUTO) 1.3 10^3/uL (1.5-3.5); LYMPHOCYTES % (AUTO) 36.8 %; MEAN CORPUSCULAR HEMOGLOBIN 27.5 pg (27.0-31.0); MEAN CORPUSCULAR VOLUME 86.1 fL (81.0-99.0); MEAN PLATELET VOLUME 8.6 fL (7.9-10.8); MONOCYTES # (AUTO) 0.4 10^3/uL (0.0-1.0); MONOCYTES % (AUTO) 11.5 %; NEUTROPHILS # (AUTO) 1.7 10^3/uL (1.5-6.6); NEUTROPHILS % (AUTO) 49.7 %; PLT - PLATELET COUNT 245 10^3/uL (130-450); RED BLOOD COUNT 4.61 10^6/uL (4.20-5.40); RED CELL DISTRIBUTION WIDTH 13.4 % (12.0-15.0); WHITE BLOOD COUNT 3.5 x10^3/uL (4.8-10.8)
[2023-03-07 09:25] LABS: ALBUMIN 4.4 g/dL (3.2-5.5); ALBUMIN/GLOBULIN RATIO 1.5 (1.0-2.2); ALKALINE PHOSPHATASE 71 IU/L (42-121); ALT ALANINE AMINOTRANSFERASE 13 IU/L (10-60); AST ASPARTATE AMINOTRANSFERASE 20 IU/L (10-42); BILIRUBIN,TOTAL 0.7 mg/dL (0.2-1.0); BUN - BLOOD UREA NITROGEN 10 mg/dL (6-20); CALCIUM 9.8 mg/dL (8.5-10.3); CARBON DIOXIDE - CO2 32 mmol/L (21-32); CHLORIDE 99 mmol/L (101-111); CHOL/HDL RATIO 2.5 (<4.4); CHOLESTEROL 234 mg/dL; CREATININE 0.6 mg/dL (0.6-1.3); GFR - MDRD 97 (>89); GLUCOSE 100 mg/dL (74-104); HDL CHOLESTEROL 95 mg/dL; LDL CHOLESTEROL,CALCULATED 122 mg/dL; LDL/HDL RATIO 1.3 (<4.4); POTASSIUM 4.1 mmol/L (3.5-4.5); SODIUM 137 mmol/L (135-145); TOTAL PROTEIN 7.4 g/dL (6.4-8.9); TRIGLYCERIDES 84 mg/dL (48-352); VLDL CHOLESTEROL 17 mg/dL
[2023-03-07 09:40] LABS: THYROID STIMULATING HORMONE 0.16 uIU/mL (0.34-5.60)
== END 2023-03-07 08:54 | disposition home or self-care (01) ==
LOC: LAB 08:53
PROVIDERS: ATTEND Registered Nurse
DX: I10 Essential (primary) hypertension (principal); Z79.899 Other long term (current) drug therapy; Z13.220 Encounter for screening for lipoid disorders; E03.9 Hypothyroidism, unspecified
CPT/HCPCS: 36415; 80053; 80061; 83721; 84436; 84443; 84480; 85025

== ENCOUNTER 2023-04-20 10:04 | Outpatient (CLI) | payer MEDICARE ==
--- NOTE | 2023-04-20 16:04 | Mammography Report ---
BILATERAL DIGITAL SCREENING MAMMOGRAM 3D/2D: 04/20/2023 CLINICAL: Routine screening. Comparison is made to exams dated: 03/18/2022 mammogram, 03/11/2021 mammogram, 11/27/2019 mammogram, 06/20/2018 mammogram, 01/25/2017 mammogram, and 12/20/2015 mammogram - [facility]. Both breasts are almost entirely fatty (category a/<25% glandular tissue). No significant masses, calcifications, or other findings are seen in either breast. There has been no significant interval change. IMPRESSION: NEGATIVE There is no mammographic evidence of malignancy. A 1 year screening mammogram is recommended. Based on the Tyrer Cuzick model (a risk assessment model) the patients lifetime risk is 4.9% and her 10 year risk is 0.0%. According to the ACR, ACS, and NCCN guidelines, an annual breast MRI exam alida g with mammogram is recommended if the patients lifetime risk is 20% or greater. This exam was interpreted at Station ID: [id number]. NOTE: For mammograms, a report in lay terms will be sent to the patient. Approximately 15% of breast malignancies will not be visualized mammographically. In the management of a palpable breast mass, a negative mammogram must not discourage biopsy of a clinically suspicious lesion. Electronically Signed By: Salomon montiel/lara:04/20/2023 12:18:52 letter sent: No_Letter ACR BI-RADS Category 1: Negative 3341F PARENCHYMAL PATTERN: (F) - The breast(s) demonstrate(s) diffuse fatty replacement. BI-RADS CATEGORY: (1) - 1 Mammogram [id number] 1 year screening LATERALITY: (B)
== END 2023-04-20 10:05 | disposition home or self-care (01) ==
LOC: DI 10:04
DX: Z12.31 Encounter for screening mammogram for malignant neoplasm of breast (principal)

== ENCOUNTER 2024-01-23 14:00 | Outpatient (CLI) | payer MEDICARE ==
[2024-01-23 14:19] LABS: BASOPHILS % (AUTO) 0.5 %; EOSINOPHILS # (AUTO) 0.1 10^3/uL (0.0-0.7); EOSINOPHILS % (AUTO) 1.6 %; HCT - HEMATOCRIT 37.3 % (37.0-47.0); HGB - HEMOGLOBIN 11.9 g/dL (12.0-16.0); LYMPHOCYTES % (AUTO) 24.5 %; MEAN CORPUSCULAR HEMOGLOBIN 27.4 pg (27.0-31.0); MEAN CORPUSCULAR HGB CONC 31.9 g/dL (32.0-36.0); MEAN CORPUSCULAR VOLUME 85.7 fL (81.0-99.0); MEAN PLATELET VOLUME 8.7 fL (7.9-10.8); MONOCYTES # (AUTO) 0.5 10^3/uL (0.0-1.0); MONOCYTES % (AUTO) 11.8 %; NEUTROPHILS # (AUTO) 2.6 10^3/uL (1.5-6.6); NEUTROPHILS % (AUTO) 61.4 %; PLT - PLATELET COUNT 255 10^3/uL (130-450); RED BLOOD COUNT 4.35 10^6/uL (4.20-5.40); WHITE BLOOD COUNT 4.3 x10^3/uL (4.8-10.8)
[2024-01-23 14:31] LABS: BILIRUBIN,URINE NEGATIVE (NEGATIVE); GLUCOSE, URINE (UA) NEGATIVE (NEGATIVE); KETONES,URINE (UA) NEGATIVE (NEGATIVE); LEUKOCYTE ESTERASE, URINE NEGATIVE (NEGATIVE); NITRITE,URINE NEGATIVE (NEGATIVE); OCCULT BLOOD,URINE NEGATIVE (NEGATIVE); PROTEIN,URINE NEGATIVE (NEGATIVE); UROBILINOGEN,URINE 0.2 (NORMAL) E.U./dL (NORMAL)
[2024-01-23 14:33] LABS: CLARITY,URINE CLEAR (CLEAR)
[2024-01-23 14:35] LABS: ALBUMIN 4.6 g/dL (3.2-5.5); ALBUMIN/GLOBULIN RATIO 1.8 (1.0-2.2); BILIRUBIN,TOTAL 0.4 mg/dL (0.2-1.0); CALCIUM 9.4 mg/dL (8.5-10.3); CREATININE 0.6 mg/dL (0.6-1.3); POTASSIUM 3.6 mmol/L (3.5-4.5); TOTAL PROTEIN 7.1 g/dL (6.4-8.9)
[2024-01-23 16:09] LABS: BACTERIA,URINE None Seen /HPF (None Seen); RBC,URINE None Seen /HPF (0-5); SQUAMOUS EPITHELIAL CELL,UR FEW Squamous (<= Few); WBC,URINE 0-3 /HPF (0-5)
[2024-01-24 04:10] LABS: COMPLEMENT C3 104 mg/dL (82-167); COMPLEMENT C4 21 mg/dL (12-38)
== END 2024-01-23 14:01 | disposition home or self-care (01) ==
LOC: LAB 14:00
PROVIDERS: ATTEND Internal Medicine Rheumatology
DX: R76.8 Other specified abnormal immunological findings in serum (principal); R21 Rash and other nonspecific skin eruption
CPT/HCPCS: 36415; 80053; 81001; 85025; 85651; 86160

== ENCOUNTER 2024-03-31 14:46 | Observation (INO) ==
--- NOTE | 2024-03-31 14:56 | ED Physician Documentation ---
History of Present Illness Stated complaint Stated Complaint: SYNCOPE/CPR Chief complaint Chief Complaint: Neuro Additonal information Additional information: She has a history of hypertension, lupus, and valvular disease. She tells me that at least 3 of her valves are bad and as of 2 years ago though she did not need a replacement. Last echo in our system was from 2016 at which time she had moderate AR, mild MR, and mild to moderate TR. She was feeling a little tired and out of it after getting back from taoism and was sitting in a chair and passed out. Her assisted her to the floor and it was reported that she may have had agonal breathing. CPR was started but then she came to and has been clinically stable for EMS here. Her only complaint now is right rib pain likely from the CPR. Meds/Allgy Home Medications Ambulatory Orders Medication Instructions Recorded Confirmed atenolol 25 mg tablet 25 mg PO 02/05/14 02/05/14 levothyroxine 25 mcg tablet 25 mcg PO QDAC 02/05/14 02/05/14 omeprazole 20 mg capsule,delayed 20 mg PO DAILY 02/05/14 02/05/14 release Thyroid Suplement. 03/08/18 ondansetron 4 mg disintegrating 4 mg translingual Q6H PRN Nausea / 03/08/18 tablet Vomiting #10 tabs cephalexin 500 mg capsule (Keflex) 500 mg PO TID ##21 12/03/18 albuterol sulfate 90 mcg/actuation 1 - 2 puff inhalation Q4HR PRN 08/24/19 aerosol inhaler (Ventolin HFA) Shortness Of Air/Wheezing ##1 amoxicillin 875 mg-potassium 1 ea PO Q12H #19 tabs 08/24/19 clavulanate 125 mg tablet prednisone 20 mg tablet 40 mg (2 x 20 mg) PO DAILY 3 days 08/24/19 #6 tabs Allergies Allergies Allergy/AdvReac Type Severity Reaction Status Date / Time Sulfa (Sulfonamide Allergy Itching Verified 03/31/24 15:05 Antibiotics) PFSH Social History Social History Smoking Status: Never smoker If you are a former smoker, when did you quit? (Date/Year): 0 Number of Years Smoked: 0 How many cigarettes a day do you smoke? (20 cigarettes=1 Pk): 0 Do you dip or chew tobacco?: No Patient requests smoking cessation consult: No Initiate information on smoking cessation: No Living arrangement: At home Living Condition: With spouse/s.o. Relationship: Do you feel safe in your home environment?: Yes Suffered physical, verbal, emotional, or financial abuse?: No History of Abuse: No POLST Patient has POLST: No POLST Status: Full Code Exam Constitutional normal general appearance Occasionally acting like she is having right chest pain and splinting HENMT head/scalp atraumatic Chest Tender over the right ribs Respiratory breath sounds equal bilaterally and normal respiratory effort Cardiovascular normal heart rate noted and regular rhythm noted Subtle systolic murmur heard best at the right upper sternal border Gastrointestinal abdomen soft to palpation and nontender to palpation Results Vitals Vitals: Vital Signs - 24 hr 03/31/24 14:57 Temperature 36.9 C Temperature Source Temporal Artery Scan Pulse Rate 71 Respiratory Rate 12 Blood Pressure 180/85 H O2 Saturation 99 O2 Source Room air Pain Intensity 6 Oxygen O2 Source Room air EKG (time done) 1454: EKG releavant findings:: EKG personally interpreted by author of this note. Relevant findings are: Rate: Rate (enter#) (65) Rhythm: NSR Intervals: Prolonged [place] QRS: Normal Ischemia: Non specific changes; No ST elevation c/w ischemia Computer interpretation: Agree with computer Labs Labs: Laboratory Tests 03/31/24 15:08 WBC 5.3 RBC 4.46 Hgb 12.0 Hct 37.7 MCV 84.5 MCH 26.9 L MCHC 31.8 L RDW 13.3 Plt Count 250 MPV 8.8 Neut # (Auto) 3.5 Lymph # (Auto) 1.3 L Loup # (Auto) 0.5 Eos # (Auto) 0.0 Baso # (Auto) 0.0 Absolute Nucleated RBC 0.00 Nucleated RBC % 0.0 PT 12.6 INR 1.1 Sodium 131 L Potassium 3.7 Chloride 95 L Carbon Dioxide 29 Anion Gap 7.0 BUN 13 Creatinine 0.9 Estimated GFR (MDRD) 61 L Glucose 120 H Calcium 9.4 Total Bilirubin 0.5 AST 21 ALT 14 Alkaline Phosphatase 72 Troponin I High Sens 6.0 Total Protein 7.1 Albumin 4.3 Globulin 2.8 Albumin/Globulin Ratio 1.5 Lipase 38 PD Medical Decision Making ED course ED course: She has known valvular disease although we do not know the current details of that. She had a syncopal episode today and now has right rib pain after being resuscitated with CPR, although she was not clearly without a pulse. Workup in the emergency department demonstrates relatively unremarkable C BC, troponin, EKG, and mild hyponatremia and hyperglycemia on a CMP. CT pulmonary angiogram demonstrates potential CHF although she does not have other signs or symptoms of this so it is questionable. She is amenable to being placed in observation for cardiac monitoring and I think this is hawkins. I did discuss with the patient and Dr. Lpoez that we do not have echo except for Monday with today being Monday. As such what Dr. Lopez is graciously willing to do is to call her supervisor slitting and shipping tomorrow to query on the acuity of echocardiography, she definitely needs it but not necessarily during this admission we think. Discharge Plan Discharge Patient Disposition: ED Place in Observation Condition: Stable Clinical Impression: Syncope Prescriptions: No Action atenolol 25 MG tablet 25 mg PO levothyroxine 25 MCG tablet 25 mcg PO QDAC omeprazole 20 MG capsule,delayed release(DR/EC) 20 mg PO DAILY Thyroid Suplement. ondansetron 4 MG tablet,disintegrating 4 mg translingual Q6H PRN (Reason: Nausea / Vomiting) Qty: 10 0RF cephalexin [Keflex] 500 MG capsule 500 mg PO TID Qty: 21 0RF amoxicillin-pot clavulanate 1 TAB tablet 1 ea PO Q12H Qty: 19 0RF albuterol sulfate [Ventolin HFA] 200 PUFFS/18 GM HFA aerosol inhaler 1 - 2 puff inhalation Q4HR PRN (Reason: Shortness Of Air/Wheezing) Qty: 1 0RF prednisone 20 MG tablet 40 mg PO DAILY 3 Days Qty: 6 0RF Print Language: Bahraini Stand Alone Forms: PCP List
[2024-03-31 15:14] LABS: BASOPHILS % (AUTO) 0.6 %; EOSINOPHILS % (AUTO) 0.7 %; HCT - HEMATOCRIT 37.7 % (37.0-47.0); LYMPHOCYTES # (AUTO) 1.3 10^3/uL (1.5-3.5); LYMPHOCYTES % (AUTO) 23.8 %; MEAN CORPUSCULAR HEMOGLOBIN 26.9 pg (27.0-31.0); MEAN CORPUSCULAR HGB CONC 31.8 g/dL (32.0-36.0); MEAN CORPUSCULAR VOLUME 84.5 fL (81.0-99.0); MEAN PLATELET VOLUME 8.8 fL (7.9-10.8); MONOCYTES # (AUTO) 0.5 10^3/uL (0.0-1.0); MONOCYTES % (AUTO) 9.6 %; NEUTROPHILS # (AUTO) 3.5 10^3/uL (1.5-6.6); NEUTROPHILS % (AUTO) 65.1 %; PLT - PLATELET COUNT 250 10^3/uL (130-450); RED BLOOD COUNT 4.46 10^6/uL (4.20-5.40); RED CELL DISTRIBUTION WIDTH 13.3 % (12.0-15.0); WHITE BLOOD COUNT 5.3 x10^3/uL (4.8-10.8)
[2024-03-31 15:29] LABS: INR 1.1 (0.8-1.2); PT - PROTHROMBIN TIME 12.6 secs (9.9-12.6)
[2024-03-31 15:33] LABS: ALBUMIN 4.3 g/dL (3.2-5.5); ALBUMIN/GLOBULIN RATIO 1.5 (1.0-2.2); BILIRUBIN,TOTAL 0.5 mg/dL (0.2-1.0); CALCIUM 9.4 mg/dL (8.5-10.3); CREATININE 0.9 mg/dL (0.6-1.3); POTASSIUM 3.7 mmol/L (3.5-4.5); TOTAL PROTEIN 7.1 g/dL (6.4-8.9)
[2024-03-31] MEDS ORDERED: iohexoL-300 100 ML VIAL ONE (15:36)
[2024-03-31] MEDS: iohexoL-300 100 ML VIAL IVP ONE (16:13)
--- NOTE | 2024-03-31 16:27 | CT Report ---
PROCEDURE: CT Angio Chest INDICATIONS: syncoper, cpr r rib pain, pe procotol CONTRAST: omni 300, 80 TECHNIQUE: After the administration of intravenous contrast, 2 mm axial images were acquired from the pulmonary apices to the posterior costophrenic angles during the arterial phase. In addition, 1 mm lung kernel and 5 mm soft tissue kernel reconstructions were performed. 3-dimensional coronal oblique maximum int ensity projection (MIP) reformats, 8 mm axial MIP, and 5 mm coronal and sagittal MPR reformats were t hen performed through the thorax. For radiation dose reduction, the following was used: automated exp osure control, adjustment of mA and/or kV according to patient size. COMPARISON: None. FINDINGS: Image quality: Excellent. Large vessels: No filling defects within the opacified pulmonary arteries, accounting for motion and contrast timing. No evidence of acute aortic syndrome or aortic aneurysm. Lungs and pleura: Mild areas of groundglass opacity are seen, which are largely seen dependently and centrally. No consolidation. No pleural effusions. No pneumothorax. No suspicious pulmonary nodules which require follow up. Mediastinum: Heart size is mildly to moderately enlarged No pericardial effusion. No large vessel abn ormality. No mediastinal adenopathy by size criteria. Chest wall and lower neck: The thyroid is not well seen. No axillary or supraclavicular adenopathy by size. Bones: No aggressive osseous abnormality. An apparent T8 vertebral body hemangioma. Age-appropriate d egenerative changes are seen. There is accentuated thoracic kyphosis. Upper Abdomen: Unremarkable. IMPRESSION: No pulmonary embolus. There is mild to moderate cardiomegaly, with scattered areas of pulmonary groundglass opacity. Please consider mild/early CHF. Additional findings: Apparent T8 vertebral body hemangioma Reviewed by: Fercho Jauregui MD on 03/31/2024 3:25 PM AKDT Approved by: Fercho Jauregui MD on 03/31/2024 3:25 PM AKSHIMA Station ID: [id number]
--- NOTE | 2024-03-31 16:48 | HISTORY & PHYSICAL EXAMINATION ---
Chief Complaint Chief Complaint Chief Complaint: syncope History of Present Illness Admitted From Admitted From:: home via EMS History Obtained From Records Reviewed: [facility] History obtained from: Dr. Beebe and patient Exam Limitations: none History of Present Illness HPI Comment/Other: She is a 78-year-old female who is relatively healthy other than valvular heart disease and a recent new diagnosis of cutaneous lupus. She went to hinduism today and did well. She was at home, with her , and was sitting on a kitchen stool after dinner (eating a fudge bar) when she began feeling dizzy and felt like her vision was jittery and eyes were moving. She became nauseated and then had a syncopal episode falling into a chair. He pulled her to the floor because she was unresponsive and felt that she did not have a pulse. He started CPR immediately and she woke a few minutes later when there were bookkeeping machine mechanic standing around as she lay on the floor. She was brought in and her complaint for now is head pressure and her right ribs were hurting under her breasts and to the axilla. She was incontinent of urine. Temperature was 36.9. Heart rate was sinus rhythm and 71. Blood pressure 180/85. Respirations 12, 99% on room air. Her felt that her blood pressure was low with all of this. Her cardiac history significant for chronic aortic regurgitation murmur, and a history of "a fast heart rate" that they tried to figure out what it was for several years. She has a long history of orthostatic dizziness with low blood pressure alternating with high blood pressure. She has numerous episodes in the EMR were she gets dizzy when she stands up. Stress test was done in October 2016. Negative for ischemia. It was a normal Leonel protocol. Echocardiogram had global left ventricular function was hyperdynamic with an ejection fraction of greater than 70% following exercise. No regional wall motion abnormalities with stress. A stress test was done in June 2018. It was a Leonel protocol. She had good exercise tolerance with a normal resting EKG and no ischemic changes by EKG criteria. She is now followed by Dr. Guidry with [facility] cardiology. She had been told that 3 of her valves are "bad", and when last seen 2 years ago she does not need a referral replacement yet. She has moderate aortic regurgitation, mild mitral regurgitation and moderate to moderate tricuspid regurgitation. There is no description of dilated ventricles or atria. In the emergency room an EKG was sinus rhythm with a first-degree AV block. Her white cell count is normal. Hemoglobin is normal. Troponin is 6. CMP normal. Chest x-ray normal. And a CT of the chest with angiogram was done to make sure she did not have a PE and that was normal. She tells me there is nothing new going on other than the new diagnosis of lupus. No recent illness, no diarrhea, no hx of anemia, no new medicine. No recent palpitations. Still keeps on getting dizzy when stands too long. no SS of URI. The next step would be to place this patient in observation for echo and telemetry. However we do not have echo techs until April 02. After discussing this with Dr. Christiansen in the emergency room, I do think it would be reasonable to observe her overnight for telemetry. Discharge her tomorrow morning on the . I will call Dr. Guidry and have him see her in the outpatient setting to get an echo EMILIANO. Meds/Allgy Home Medications Ambulatory Orders Medication Instructions Recorded Confirmed atenolol 25 mg tablet 12.5 mg PO DAILY 02/05/14 03/31/24 omeprazole 20 mg capsule,delayed 20 mg PO DAILY 02/05/14 03/31/24 release estradiol 0.01% (0.1 mg/gram) 1 appful vaginal UD 03/31/24 03/31/24 vaginal cream hydrochlorothiazide 12.5 mg tablet 12.5 mg PO DAILY 03/31/24 03/31/24 hydroxychloroquine 200 mg tablet 200 mg PO BID 03/31/24 03/31/24 levothyroxine 125 mcg tablet 125 mcg PO UD 03/31/24 03/31/24 levothyroxine 150 mcg tablet 150 mcg PO UD 03/31/24 03/31/24 Allergies Allergies Allergy/AdvReac Type Severity Reaction Status Date / Time Sulfa (Sulfonamide Allergy Itching Verified 03/31/24 15:05 Antibiotics) [facility] Medical History Medical History (Updated 03/31/24 @ 18:03 by Lida Lopez MD) Cutaneous lupus erythematosus Pneumonia september 2017 Osteoporosis was on calcitonin but taken off due to side effects OA (osteoarthritis) of knee both Urinary incontinence S3T1-0-6-7, miscarriage GERD (gastroesophageal reflux disease) Hypothyroidism associated with 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 Has LAE in past. Arrhythmia Orthostatic hypotension Surgical History Surgical History (Updated 03/31/24 @ 17:01 by Lida Lopez MD) Status post surgical removal of malignant neoplasm of skin H/O arthroscopy of knee Total knee replacement status Family History Family History (Updated 03/31/24 @ 17:06 by Lida Lopez MD) Mother Bleeding in brain due to brain aneurysm Breast cancer Father COPD (chronic obstructive pulmonary disease) Brother CAD (coronary artery disease) Sister Breast cancer Daughter Healthy adult on routine physical examination Social History Social History (Updated 03/31/24 @ 17:18 by Lida Lopez MD) Smoking Status: Former smoker If you are a former smoker, when did you quit? (Date/Year): 1976 Number of Years Smoked: 14 How many cigarettes a day do you smoke? (20 cigarettes=1 Pk): 10 Second hand tobacco smoke exposure: Yes Do you dip or chew tobacco?: No Do you vape?: No Patient requests smoking cessation consult: No Initiate information on smoking cessation: No Living arrangement: At home Living Condition: With spouse/s.o. Relationship: Physical Activity: Walking Level: Independent Do you feel safe in your home environment?: Yes Suffered physical, verbal, emotional, or financial abuse?: No History of Abuse: No ETOH Use: None Substance Use: denies use POLST Patient has POLST: No POLST Status: Full Code Review of Systems Constitutional Denies: Fatigue, Fever, Chills, Malaise, Weakness, Diaphoresis or Night sweats Eyes Reports: Blurry vision (eyes felt like they were jittery right before); Denies: Pain, Irritation, Amaurosis or Seeing flashes Ears, nose, mouth, and throat Denies: Ear pain, Ear discharge, Hearing loss, Hearing aids, Nasal congestion, Post nasal drip, Nasal obstruction, Vertigo or Neck pain Cardiovascular Reports: Irregular heart rate, chest pain, palpitations and lightheadedness; Denies: edema, swelling of feet/ankles, Syncope or shortness of breath with exertion Respiratory Denies: Shortness of breath, Cough, Sputum production, Change in phlegm color or Wheezing Gastrointestinal Denies: Abdominal pain, Abdominal distention, Nausea, Vomiting or Poor appetite Genitourinary Denies: Painful urination, Urinary frequency, Urinary urgency, Nocturia or Urinary incontinence Musculoskeletal Reports: Joint pain (getting a knee replacement on L knee this winter); Denies: Back pain or Neck pain Integumentary/Breast Reports: New lesion (recent biopsy and has a new diagnosis of cutaneous lupus) Neurological Reports: Headache (pressure right now) and Dizziness; Denies: General weakness, Focal weakness, Lack of coordination, Vertigo, Confusion, Memory problems, Difficulty communicating thoughts or Seizure-like activity Psychiatric Denies: Depression, Anxiety, Mood swings or Panic attacks Endocrine Denies: Excessive urination, Excessive thirst, Polyphagia, Fatigue, Cold intolerance or Excessive sweating Hematologic/Lymphatic Denies: Anemia, Easy bruising, Petechiae, Easy bleeding or Blood clots Allergic/Immunologic Denies: Hives or Wheezing Prior Level of Functionality: Independent with ADLs. Cleans her own house. Drives. Pays Bills. Exam Exam well groomed, well nourished. Appears fatigued. Constitutional normal general appearance, no apparent distress and alert HENMT normocephalic and head/scalp atraumatic Eyes PERRL and EOMs intact bilaterally Neck/C-Spine visual inspection normal Lymph no lymphadenopathy noted Chest inspection of chest normal Respiratory breath sounds equal bilaterally, normal respiratory effort, clear to auscultation bilaterally, no wheezes and no rales Cardiovascular normal heart rate noted, regular rhythm noted and no murmur Gastrointestinal abdomen normal to inspection, abdomen soft to palpation, nontender to palpation and nontender to percussion Genitourinary no CVA tenderness Extremities normal to inspection, normal to palpation, no tenderness, full ROM and no joint enlargement Neurology pulling machine operator II-XII intact, no movement abnormality noted, no focal motor deficit noted and no sensory deficits noted Psychiatry mental status grossly normal, oriented x3, thought process normal and cooperative Skin skin color normal Conclusion/Plan Problem List (1) Syncope: Plan: She has a hx of palpitations but no documented Tachy-jania, no heart block on EKGs. Does have valvular heart disease but no to cause syncope. Although she received CPR from , there is doubt she had full asystole since she has a hx of syncope in the past. She is on atenolol but EKG and tele in ER with NSR, no bradycardia. I am not finding her to be anemic. She has no infection. No PE. I would think that if she had Vtach from CHF she would have a hx of EF <30%. She has no SS of CHF and activity has been normal for her. She is active. No hx of hypoglycemia. No hx of seizures. Plan: Observation status we do not have Echo tomorrow and I will call Dr. Guidry tomorrow for him to schedule that thru his office. He may need to order an event monitor. Tele to make sure no arrhythmia occurs again. Qualifiers: Syncope type: vasovagal syncope Qualified Code(s): R55 - Syncope and collapse Lab Results 03/31/24 15:08 03/31/24 15:08 Diagnostic Imaging Results Diagnostic Imaging Results: positive Final report reviewed Diagnostic Imaging Results Comments: CT angiogram without PE. Lungs with mild groundglass opacity seen dependently and centrally. No pna. Heart if moderated enlarged. No effusions. No osseious abnormality and old T8 hemangioma. EKG Results EKG Interpreted Independently: No EKG Comparison: Unchanged from prior EKG (NSR with 1st degree block. ) Core Measures Anticipated LOS I expect patient to be DC'd or transferred within 96 hours.: Yes DVT/VTE - Prophylaxis VTE/DVT Device ordered at admit?: Yes
[2024-03-31] MEDS ORDERED: oxyCODONE 5 MG TABLET PO PRN (18:01)
[2024-03-31] MEDS ORDERED: ONDANSETRON 4 MG/2 ML VIAL IVP PRN (18:01)
[2024-03-31] MEDS ORDERED: SODIUM CHLORIDE FLUSH 0.9% 10 ML SYRINGE IVP PRN (18:01)
[2024-03-31] MEDS: ACETAMINOPHEN 325 MG TABLET PO PRN (19:30)
[2024-03-31] MEDS: SODIUM CHLORIDE FLUSH 0.9% 10 ML SYRINGE IVP SCH (19:31)
--- NOTE | 2024-04-01 11:19 | PHARMACY PROGRESS NOTE ---
Best Possible Medication History Admit Date and Time: 03/31/24 4264 Processed by: Pharmacy Medications reviewed in ED?: Yes Medication History completed: Yes Patient Interview: Completed Secondary Source(s): Pharmacy records and Insurance records [facility] Statement: As the person ultimately responsible for medication therapy, providers are able to order a medication from an existing home medication list in [facility] via the "Reconcile Routine" prior to Confirmation of that medication by residential support worker. Such practice is discouraged except when the physician, in their clinical judgment, deems that a medical need exists for a medication without regard to previous use.
[2024-04-01] MEDS ORDERED: CYANOCOBALAMIN 1,000 MCG/ML VIAL IM SCH (14:00)
[2024-04-01] MEDS: ESTRADIOL VG SCH (14:35)
[2024-04-01] MEDS: LEVOTHYROXINE 75 MCG TABLET PO SCH (14:38)
[2024-04-01] MEDS: ONDANSETRON ODT 4 MG TABLET TL PRN (14:39)
[2024-04-01] MEDS: atenoloL 25 MG TABLET PO ONE (18:39)
[2024-04-01] MEDS: hydroCHLOROthiazide 12.5 MG CAPSULE PO ONE (18:39)
[2024-04-01 19:42] VITALS: O2SAT 95
--- NOTE | 2024-04-01 20:25 | Discharge Summary ---
Discharge Summary Admit Date: 03/31/24 Discharge Date: 04/01/24 Discharging Provider: Lida Lopez MD Primary Care Provider: ANA LAURA Nichole Code Status: Attempt Resuscitation DIAGNOSES Discharge Diagnoses with Status of Each Condition: syncope HPI History of Present Illness: She is a 78-year-old female who is relatively healthy other than valvular heart disease and a recent new diagnosis of cutaneous lupus. She went to hinduism today and did well. She was at home, with her , and was sitting on a kitchen stool after dinner (eating a fudge bar) when she began feeling dizzy and felt like her vision was jittery and eyes were moving. She became nauseated and then had a syncopal episode falling into a chair. He pulled her to the floor because she was unresponsive and felt that she did not have a pulse. He started CPR immediately and she woke a few minutes later when there were software application tester standing around as she lay on the floor. She was brought in and her complaint for now is head pressure and her right ribs were hurting under her breasts and to the axilla. She was incontinent of urine. Temperature was 36.9. Heart rate was sinus rhythm and 71. Blood pressure 180/85. Respirations 12, 99% on room air. Her felt that her blood pressure was low with all of this. Her cardiac history significant for chronic aortic regurgitation murmur, and a history of "a fast heart rate" that they tried to figure out what it was for several years. She has a long history of orthostatic dizziness with low blood pressure alternating with high blood pressure. She has numerous episodes in the EMR were she gets dizzy when she stands up. Stress test was done in October 2016. Negative for ischemia. It was a normal Leonel protocol. Echocardiogram had global left ventricular function was hyperdynamic with an ejection fraction of greater than 70% following exercise. No regional wall motion abnormalities with stress. A stress test was done in June 2018. It was a Leonel protocol. She had good exercise tolerance with a normal resting EKG and no ischemic changes by EKG criteria. She is now followed by Dr. Guidry with [facility] cardiology. She had been told that 3 of her valves are "bad", and when last seen 2 years ago she does not need a referral replacement yet. She has moderate aortic regurgitation, mild mitral regurgitation and moderate to moderate tricuspid regurgitation. There is no description of dilated ventricles or atria. In the emergency room an EKG was sinus rhythm with a first-degree AV block. Her white cell count is normal. Hemoglobin is normal. Troponin is 6. CMP normal. Chest x-ray normal. And a CT of the chest with angiogram was done to make sure she did not have a PE and that was normal. She tells me there is nothing new going on other than the new diagnosis of lupus. No recent illness, no diarrhea, no hx of anemia, no new medicine. No recent palpitations. Still keeps on getting dizzy when stands too long. no SS of URI. The next step would be to place this patient in observation for echo and telemetry. However we do not have echo techs until April 02. After discussing this with Dr. Christiansen in the emergency room, I do think it would be reasonable to observe her overnight for telemetry. Discharge her tomorrow morning on the . I will call Dr. Guidry and have him see her in the outpatient setting to get an echo EMILIANO. CONSULTS | PROCEDURES Procedures: CT of the chest with angiogram does not show any pulmonary emboli. Mild areas of groundglass opacities seen that are dependent and central but no consolidation. No pulmonary nodules. Mild to moderate cardiomegaly. HOSPITAL COURSE Hospital Course: Patient was felt to have had a cardiac event with her as orthostatic syncope, or any arrhythmia it was not clear. She was not felt to have a neurological event as such the ER did not do head imaging. Overnight telemetry had no arrhythmias. Her medications were withheld because she had initial hypotension in the field. Before discharge she received her atenolol and hydrochlorothiazide. She was also seen by physical therapy specifically to be evaluated for benign positional vertigo and none was found. Orthostatic vital signs showed a supine blood pressure 163/88, pulse 71. Sitting blood pressure 185/103 with a pulse of 66. She remained sitting and blood pressure was 190/95 with a pulse of 67. And then she was transition to standing and blood pressure was 161/97 with a pulse 83. She had no lightheadedness or dizziness but she did not "feel well" with this test. She tells me that she has had tilt testing in the past and it was negative. I have asked her to follow-up with her primary care provider and be referred to cardiology. She used to see Dr. Guidry with [facility] cardiology but that was 2 years ago and she wonders if he is retired. I will send a copy of the discharge summary to Dr. Guidry's office and asked that she be given an appointment as soon as possible. I am asking that she get an echocardiogram. Today is a holiday and echo support not available. Discharge exam had a blood pressure 172/93. Pulse 69. Respirations 20. Temperature 36.6. O2 sat 95%. She is a slender alert white female who looks her stated age. Neck is supple and she has no bruits or thyromegaly. Lungs are clear to auscultation and percussion and she has no respiratory distress. Comfortable sitting up in a chair and getting up to go to the bathroom. Regular rate and rhythm without murmur. She is felt to have multiple valve regurgitation but no stenosis on echo. These were old echoes done before she came into the hospital. Abdomen is soft and nontender. Extremities are without edema.. This document was made in part using voice recognition software. While efforts are made to proofread this document, sound alike and grammatical errors may occur. ALLERGIES Allergies Allergy/AdvReac Type Severity Reaction Status Date / Time Sulfa (Sulfonamide Allergy Itching Verified 03/31/24 15:05 Antibiotics) MEDICATIONS Ambulatory Orders Medication Instructions Recorded Confirmed atenolol 25 mg tablet 12.5 mg PO QPM 02/05/14 04/01/24 omeprazole 20 mg capsule,delayed 20 mg PO DAILY 02/05/14 03/31/24 release estradiol 0.01% (0.1 mg/gram) 1 appful vaginal UD 03/31/24 03/31/24 vaginal cream hydrochlorothiazide 12.5 mg tablet 12.5 mg PO DAILY 03/31/24 03/31/24 hydroxychloroquine 200 mg tablet 200 mg PO BID 03/31/24 03/31/24 levothyroxine 150 mcg tablet 150 mcg PO UD 03/31/24 03/31/24 cyanocobalamin (vitamin B-12) 1,000 mcg IM .MONTHLY 04/01/24 04/01/24 1,000 mcg/mL injection solution LABS 03/31/24 15:08 03/31/24 15:08 TIME SPENT Time Spent in Discharge (Minutes): 35 Discharge Plan Discharge Patient Disposition: 01 Home, Self Care Medically Cleared Date:: 04/01/24 Prescriptions: Continued atenolol 25 MG tablet 12.5 mg PO QPM Rx Instructions: Pt takes 1/2 tab every morning omeprazole 20 MG capsule,delayed release(DR/EC) 20 mg PO DAILY hydrochlorothiazide 12.5 mg tablet 12.5 mg PO DAILY Patient Comments: take 1 tablet by mouth once daily estradiol 0.01 % (0.1 mg/gram) cream 1 appful VAGINAL UD Patient Comments: apply vaginally three times a week hydroxychloroquine 200 mg tablet 200 mg PO BID levothyroxine 150 mcg tablet 150 mcg PO UD Patient Comments: take 1 tablet by mouth 4 DAYS PER WEEK DIRECTED cyanocobalamin (vitamin B-12) 1,000 mcg/mL solution 1,000 mcg IM .MONTHLY Patient Comments: recently prescribed and has not taken yet because she does not know how Diet: Regular Interventions: Belongings Inventory Last Done: 03/31/24 21:04 Discharge Last Done: 04/01/24 19:18 Discharge Checklist - Nursing Last Done: 04/01/24 19:18 Health Concerns: Unfortunately you have a long history of nearly passing out, lightheadedness, dizziness. So far your workup for all of this has been negative in the past. With this episode the passing out was so severe your felt you did not have a pulse and he started resuscitative efforts with CPR. He recovered within a few minutes and software application tester brought you to the hospital. So far your CAT scan of the head is negative. We monitored you overnight to make sure that your heart rate was stable and it was. We also had you seen by physical therapy. Your blood pressure was 163/88 laying down. 185/103 sitting. 190/95 standing. And after standing for a few minutes her blood pressure dropped to 161/97. It made you not feel "well". But you did not pass out. She also make sure you did not have benign positional vertigo and you did not. As such you are stable to go home. Resume your usual medications. Assessment: Patient is alert, oriented to person, place, time and situation Plan of Treatment: 1. Please see your primary care provider in follow-up. The neck step for them is to refer you to cardiology for a longer rhythm observation. Sometimes we have to monitor someone's heart rate for up to 30 days. You also need to get an echocardiogram to get an ultrasound of the heart since on the day you were here, we did not have an waste handling technician. I am not changing any of your medications. Please stay on those. Print Language: Macedonian Patient Instructions: Syncope Causes, Dizziness Fainting Poss Causes Follow-up Care: Margarita Cool ARNP [Primary Care Provider] -
[2024-04-01] MEDS ORDERED: HYDROXYCHLOROQUINE 200 MG TABLET PO SCH (21:00)
[2024-04-01] MEDS ORDERED: atenoloL 25 MG TABLET PO SCH (21:00)
[2024-04-02] MEDS ORDERED: hydroCHLOROthiazide 12.5 MG CAPSULE PO SCH (09:00)
== END 2024-04-01 19:30 | disposition home or self-care (01) ==
LOC: MS2 14:46 → ED 14:46 → MS2 17:47
PROVIDERS: ADMIT Specialist; ATTEND Specialist
DX: I44.0 Atrioventricular block, first degree; E87.1 Hypo-osmolality and hyponatremia; I08.3 Combined rheumatic disorders of mitral, aortic and tricuspid valves; L93.2 Other local lupus erythematosus; R55 Syncope and collapse; R73.9 Hyperglycemia, unspecified